=== PATIENT | female | born 1960 | race Caucasian/White ===

== ENCOUNTER 2018-12-08 09:00 | Outpatient (RCR) | payer BC, SELFPAY ==
--- NOTE | 2018-12-08 09:08 | BH.SGPN.GN ---
Behaviors/Verbalizations/Mental Status: []Client alert and oriented, neatly dressed and groomed. Eye contact good. Motor activity appropriate. Speech within normal limits. Affect constricted, mood anxious. Thoughts linear, logical, no signs of hallucinations or delusions. Reviewed client?s symptom tracker. Client marked 2/5 for thoughts of suicide and 0/5 for risk, plan, or intent as of 12/08/18. Therapist to follow up with client after group today. Client Response/Progress/Benefit: []Client entered session alert and oriented, appearing anxious. Client?s first day in PHP. Client declined to share during check in, but she was attentive throughout session. Client receptive to supportive statements from peers who provided hope to client. Client appeared to benefit from connecting with peers and receiving support. Client started PHP today to prevent decompensation of depressive symptoms, improve functioning, and maintain safety.
--- NOTE | 2018-12-08 09:12 | BH.MDN_ITS ---
Multi-Disciplinary Note - Note 60-min Individual Time Started:: 12:25 Date: 12/08/18 Purpose of session/treatment goals addressed:: The purpose of this session was to gather information on client's current stressors, symptoms, history, and treatment goals. Another goal was to build rapport and provide psychoeducation. Eye Contact:: Fair Motor Activity:: Appropriate Appearance:: Neat Speech:: Tangential, Rambling, Rapid Mood:: Anxious, Dysthymic Affect:: Congruent - tearful at times Thoughts:: Racing, No evidence of hallucinations/delusions noted Staff Interventions:: Therapist used active listening and open-ended questions to explore client's current stressors, symptoms, history, and treatment goals. Therapist used strengths perspective to build rapport and help client identify personal resilience factors. Therapist provided psychoeducation on compassion fatigue, depression, and maintenance cycles. Therapist provided emotional support and gave client homework to write down her daily schedule. Client Response:: Client responded well to session, open to meeting with therapist. Client shared what brought her to [facility] which included numerous stressors that have happened within the last few years. Client's stressors included losing her job of 20 plus years, taking care of her mother with Alzheimer's, medical problems in the family, and the loss of her father three years ago. This year is also the 30th year anniversary of her brother's suicide. Client reported her psychiatric nurse practitioner has been trying to get her to come to Behavioral Health for years. 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 Client described herself as scattered and shared she often has difficulty expressing her feelings. Client stated all her life she has had to take care of others and client reported she constantly had to deal with crises. Client shared it's almost like I function best in crisis. Client shared she has been depressed, has no energy, isolates, feels overwhelmed, feels like a burden, and has difficulty finding enjoyment in life. Client receptive to psychoeducation on the depressive maintenance cycle, compassion fatigue, and negative self-talk. Client reported she has never had high self-esteem and often compares herself to others. Client stated her sister and her 's personalities reinforces client's low self-esteem. Client willing to write out her daily schedule for homework. Risks/Concerns:: Client reports having passive suicidal ideations, but she denies any active thoughts, plan, or intent as of 12/08/18. Client reports her family keeps her from acting on her thoughts and shared I would never do that to them. Reports ability to maintain safety. Progress Toward Goals/Plan:: Client?s first day in [facility], no progress to document. Client reports she has been experiencing racing thoughts, constantly feels overwhelmed, and has been isolating. Client also endorses hopelessness, passive suicidal ideations, compassion fatigue, anhedonia, and apathy. shared she has struggled with mental health for most of her adult life and stated, ?It?s always been one crisis after another.? Client identified her treatment goals as learning to like herself, reduce anxiety and depression, improve emotional r egulation ?so my emotions don?t control me,? and improve self-worth. Client meets criteria for [facility] level of care due to the severity of her symptoms, lack of ability to complete ADLs, and passive suicidal ideations. Will continue tx to prevent decompensation and improve daily functioning. Time Stopped:: 13:30
--- NOTE | 2018-12-08 10:25 | BH.COMM ---
Communication Note - Communication with Client Communication Note: Therapist met with client to complete initial PHP paperwork. Therapist introduced self as client's individual therapist and answered client's questions. Client denies any changes since the intake assessment and denies any active suicidal ideations, plan, or intent.
--- NOTE | 2018-12-08 10:27 | BH.PSA_ITS ---
Source of Information - Presenting Problems/Circumstances Problems, Referral Source, Mental Status, Client: Client is a 57-year-old female with a history of depression and anxiety. Client reported her outpatient providers have been trying to get me to come here for a long time. Client presents to [facility] due to decompensation of mental health symptoms for the past several months. Client reports she was let go from her job due to worsening mental health symptoms. Client is the primary caregiver for her mother who has A lzheimer's. Client reports she has been feeling overwhelmed, scattered, and unable to control her emotions. Client endorses erratic sleep, worthlessness, hopelessness, passive thoughts of , low energy, anhedonia, isolative behaviors, and increased appetite. Client also reports ruminations, poor focus, poor memory, racing thoughts, and panic. Client has a history of self-medicating with alcohol. Client's symptoms are interfering with her social, occupational, and familial functioning. Cooperative during the interview. Eye contact good. Motor activity appropriate. Speech within normal limits. Neatly dressed and groomed. Mood depressed, affect flat. Psychiatric Presentation - Psych Issues & Need for Admission Psychiatric Issues:: Major depressive disorder recurrent severe without psychosis F33.2, rule out dysthymia, generalized anxiety disorder Past Psychiatric History - Treatment Hx Treatment History: Client denies any previous psychiatric admits and client had no history of suicide attempts. Client reports she was first depressed in her early 20s and she first took medication for psychiatric reasons around age 28 or 29. Client reports she has been on and off medication but mostly on meds since her late 20s. Past medications include Prozac, Effexor (made her more anxious), Lamictal, and Wellbutrin XL 300 mg p.o. every morning for approximately 2 years. Client has a therapist at [facility]. Rhianna Burnette, and a psych nurse practitioner at [facility] , Deborah Watkins. First hospitalization:: denies Most recent hospitalization:: denies Medication Trials:: Yes - see above ECT Therapy:: No Age of first mental health symptoms: Client reports she was first depressed in her early 20s and she first took medication for psychiatric reasons around age 28 or 29. Client reported she has always struggled with low self-esteem and depression. When client was around 20 years old her brother completed suicide. This is likely a contributor to client's development of symptoms. Describe (age, circumstance, etc) any past hospitalizations: client denies any past hospitalizations. Current providers for mental health treatment (counselor, psychiatrist, cyanide case hardener, etc.): Individual therapist, Rhianna Huizar at [facility]. Deborah Watkins, pharmaceutical botanist, at [facility]. Development & Family of Origin - Childhood Significant Childhood Events: Client's father was disabled - Family Who currently lives in your home?: Client currently lives in [place] with her . Client and her now live alone, but her daughter and granddaughter used to live with client and her for a period of time. Describe family composition:: Client was born and raised in [place] and she describes her childhood as normal. Client reports her parents were hard- working and she knows they cared about her, but there was not much emotion shown by them. Client?s father was disabled and he almost four years ago. Client?s mother has Alzheimer?s and client is one of her primary caregivers. Client reports caregiver fatigue and has considered putting her mother in a halfway. Client has one brother and one sister. Client is the middle child. Client is somewhat close with her sister, but client shared ?it?s her way or the highway.? Client?s brother completed suicide when client was in her 20s. Client had her first daughter at age 17 and had 3 children by age 22. Client has 3 grandchildren now and enjoys them. Client?s oldest daughter and oldest grandchild lived with client and her for a period of time. Client gets along well with her oldest grandchild. Client was at age 18, duration 40 years. Client describes their relationship as ?cohabitating? and reports her is not very supportive. - Family History Family Hx of Psychiatric or AOD Problems: Family psych history on the paternal side she said there is depression and anxiety. She has a brother with depression, anxiety, and borderline personality disorder. She has a son with depression and anxiety. She has a brother who committed suicide. She has no other substance issues in the family. Her mother is 80 years old with Alzheimer's dementia. Ethnicity - Culture Do you identify yourself with any particular cultural, ethnic background, or community?: No - Sexuality Sexual Orientation: Heterosexual Spirituality - Beliefs Is there a particular form of support from this community you can use for your recovery?: No Mental Status - Memory Recent Memory: Fair Remote Memory: Fair - Concentration Concentration: Poor - Eye Contact Eye Contact: Stares - Speech Speech: Rapid, Tangential - Thought Process Thought Process: Ruminations Insight: Fair Judgment: Fair Behavior: Anxious - Orientation Orientation: Time, Person, Place, Situation - Appearance Appearance: Neat/clean - Mood Mood: Anxious, Dysphoric/tearful - Affect Affect: Constricted Suicide Assessment - Suicidal Ideation Have you ever felt like hurting yourself?: Yes Please explain:: history of passive suicidal ideations and wishes of , but denies ever having intent to act on these thoughts. Protective factors include her family and seeing how her brother's suicide impacted her family. Were you using ETOH/drugs at the time?: No Suicidal Intentional Rating Scale (SIRS): Current suicidal thoughts/No plan/Contracts for safety - Client reports having passive suicidal ideations and wishes of . But client declines any plans or intent. Client reported I saw what my brothers suicide did to the family... I would never do that to my family. Physician Notification: If Active suicidal thoughts/Will not contract for safety is checked, contact physician and document in the Physician Notification section below. Violent Behavior/Abuse History - Homicidal Ideation Do you have any homicidal thoughts? If so, explain:: No Is there a known potential victim? If yes, who:: No - Abuse Have you ever been abused?: No - Life Events Are there any other significant life events?: - Client's dad three years ago, client's brother completed suicide when client was in her 20s, and client's mother's health continues to get worse., Hardships - Client recently lost her job, had knee replacement surgery, and is the caregiver for her mother who has alzheimer's., Family illness - Client's has health issues, client's daughter had cancer, and cleint's mother has alzheimer's. - Safety Do you ever feel threatened in your home? If yes, describe:: No Adult Social History - Age 18 to Present Describe your current support system:: Client identified her , her kids, and her sister as her support system. Client does not spend time with friends. Substance Use - Substance Substance Use Type: Alcohol - She first used alcohol around age 14. She never had a problem with drinking but did increase use of alcohol 6 months ago when she was depressed. She was using vodka several shots 4 to 5 days a week for about 4 months. She stopped doing this 3 months ago. Currently her alcohol use is down to 1 beer 2-3 times a week. She has never had withdrawal or blackouts from alcohol. She has no rehab ever for anything., Tobacco - She does smoke 1/2 to 1 pack/day for the past 30 years. She quit each time she was and thinks that she may be could quit again or at least decreased to a few cigarettes a day. - IV Substance Use Do you have a history of IV use?: denies Leisure/Social Activities - Interests What do you enjoy or might be interested in learning about?: Client reports her depressive symptoms keep client from engaging in activities she used to enjoy. Client used to like exercising, reading, and cooking. Education & Occupational Histo - Education What is your level of education?: High School Do you have any learning disabilities?: No - Occupation List any current or past employment:: She recently lost her job in September 2018. 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 Service - Service Have you ever been in the ?: No Legal History - Records Have you had any past legal charges?: No Do you have any current legal charges?: No Have you ever been incarcerated? If yes, describe:: No - Court Orders Have you had any past court orders for psychiatric treatment?: No Do you have a present court order for psychiatric treatment?: No Problem Checklist - Current Problem Areas Problem List: Nutritional/Eating pattern changes - 40 pount weight gain in the past 6 months and increased appetite., Depressed mood/sad - She endorses anhedonia with no enjoyment of the usual things she enjoys. She describes a lack of motivation to get anything done around the house. She has low energy and no motivation. Client reports a weight gain of 40 pounds in the past 6 months and increased appetite. Client endorses feelings of worthlessness, hopelessness, and sadness. Client reports history of low self-esteem and negative self-talk that reinforces depression., Bereavement - brother completed suicide when client was in her 20s, lost her father almost four years ago, and client's mother's health continues to decline., Anxiety - Client feels nervous all the time and has occasional panic attacks but they are not full-blown. She does have racing thoughts at times which makes it difficult to get to sleep., Inattention - reports difficulty concentrating, completing tasks, and finishing thoughts, Substance use - increased use of alcohol 6 months ago when she was depressed. She was using vodka several shots 4 to 5 days a week for about 4 months. She stopped doing this 3 months ago. Currently her alcohol use is down to 1 beer 2-3 times a week., Sleep problems - difficutly falling asleep and reports sleeping too much, Pertinent health issues - She has a history of a hysterectomy 8 years ago, knee replacement surgery, rotator cuff surgeries, one small bowel surgery., Additional psychosocial stressors - primary caregiver for her mother, marital issues, recently lost of her job, and currently isolating from supports. Discharge Planning Needs - Anticipated Follow-Up Mental Health Center (Name/Phone Number):: [facility] sees Rhianna Huizar Private Therapist/Psychiatrist:: [facility] sees Deborah Watkins Family and Caregiver Contacts:: Moreno Berry- Release of Information Signed:: No Automotive Detailer's Assessment - Client's Needs What are the client's feelings about the program?: Hopeful that the program will be helpful and assist client in reducing her symptoms. What are the client's goals?: Client identified her treatment goals as learning to like herself, reduce anxiety and depression, improve emotional regulation ?so my emotions don?t control me,? and improve self-worth. What are the client's strengths?: Client presents as a kind, resilient, and motivated woman who wants to improve her mental health. 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 Client reports being close with her family. Client is established outpatient counseling and psychiatry. Client is currently not working which is helping client focus more on her mental health. Diagnoses - Diagnoses Diagnosis #1:: Major depressive disorder recurrent severe without psychosis F33.2 Diagnosis #2:: Generalized anxiety disorder Interpretive Summary - Interpretive Summary Interpretive Summary: Client is a 57-year-old female with a history of depression and anxiety. Client reported her outpatient providers have been trying to get me to come here for a long time. Client presents to [facility] due to decompensation of mental health symptoms for the past several months. Client has no previous psychiatric admissions and denies any history of suicide attempts. Client reports she was let go from her job due to worsening mental health symptoms. 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 Client reports she has been feeling overwhelmed, scattered, and unable to control her emotions. Client endorses erratic sleep, worthlessness, hopelessness, passive thoughts of , low energy, anhedonia, isolative behaviors, and increased appetite. Client also reports ruminations, poor focus, poor memory, racing thoughts, and panic. Client has a history of self-medicating with alcohol and she continues to do this, but of decreased intensity. Client denes history of abuse. Family history of depression, anxiety, and her brother completed suicide. Client's symptoms are interfering with her social, occupational, and familial functioning. Treatment Plan Recommendations - Recommendations Guidelines: Special needs identified to be included in the development of an individualized treatment plan regarding past psychiatric history and treatment, developmental events, family relationships/events/culture, past and/or current educational, occupational, social, and residential experience, and legal status. Recommendations:: Risks, options, possible complications, benefits and side effects of medications were discussed between psychiatrist and patient and she understands and accepts these. The patient will do the PHP program as the structure, education and support are necessary to prevent exacerbation of her symptoms and need for hospitalization. Provided resources for caregiver support groups.
--- NOTE | 2018-12-08 10:27 | BH.MTP ---
[facility] Treatment Plan - Patient Information Program Physician:: Lois Henry Primary Therapist:: Antoinette Cabrera - Psychiatric Diagnoses Psychiatric Diagnoses:: Major depressive disorder recurrent severe without psychosis F33.2, rule out dysthymia, generalized anxiety disorder Diagnosis Code(s):: F 33.2 - Estimated LOS Estimated LOS (in weeks):: 1 Problem/Goal #1 - Problem/Goal #1 Stated Goal:: Client will decrease depressive symptoms, isolation, and passive suicidal ideations due to Major Depressive Disorder. 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 Being a caregiver is time consuming and exacerbates client's mental health symptoms. Client has used drinking and other unhealthy coping skills to manage the stress from caregiving. Additionally, client reports not having many supports, isolative behaviors, and low self-esteem. Client shared her relationship with her is not the greatest. Client stated most of her adult life has been one crisis after another. For this reason, client reports belief she functions best in crisis which makes it difficult to maintain stability. Functional Impact: Client is a 57-year-old female with a history of depression and anxiety. Client reported her outpatient providers have been trying to get me to come here for a long time. Client presents to [facility] due to decompensation of mental health symptoms for the past several months. Client reports she was let go from her job due to worsening mental health symptoms. 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 Client reports she has been feeling overwhelmed, scattered, and unable to control her emotions. Client endorses erratic sleep, worthlessness, hopelessness, passive thoughts of , low energy, anhedonia, isolative behaviors, and increased appetite. Client also reports ruminations, poor focus, poor memory, racing thoughts, and panic. Client has a history of self-medicating with alcohol. Client's symptoms are interfering with her social, occupational, and familial functioning. Goal Relevant Strengths/Supports: Client presents as a kind, resilient, and motivated woman who wants to improve her mental health. 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 Client reports being close with her family. Client is established outpatient counseling and psychiatry. Client is currently not working which is helping client focus more on her mental health. - Objectives Objective #1 Stated Objective: Client will increase social activity to at least one additional activity per week to increase social engagement and break depressive maintenance cycles. Interventions: Therapist will help client explore social connection opportunities, and process ways to get the most out of the experience. Therapist will use behavioral activation and SMART goal setting. Therapist will provide education on maintenance cycles for depression and help client learn how to break unhealthy maintenance cycles. Discharge Criteria: Client will have achieved this objective when can identify attending at least one social activity of interest weekly and report reduced isolation. Target Date: 12/15/18 Review Date: 12/15/18 Status: open Objective #2 Stated Objective: Client will identify and replace 2-3 negative thinking patterns that mediate feelings of guilt, sadness, and negative core beliefs to reduce depressive symptoms. Interventions: Therapist will assist client in developing an awareness of the cognitive messages that reinforce depressive, guilty thinking. Therapist will also assist client in challenging, reframing, and replacing negative thinking patterns. Therapist will provide psychoeducation on depression and help client increase awareness of warning signs and triggers. Discharge Criteria: Client will have achieved this goal when can identify at least 2 negative thinking patterns, replace negative thinking with more positive, affirmative messages. Target Date: 12/15/18 Review Date: 12/15/18 Status: open Problem/Goal #2 - Problem/Goal #2 Stated Goal:: Client will decrease ruminating thoughts which cause anxiety. 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 Being a caregiver is time consuming and exacerbates client's mental health symptoms. Client has used drinking and other unhealthy coping skills to manage the stress from caregiving. Additionally, client reports not having many supports, isolative behaviors, and low self-esteem. Client shared her relationship with her is not the greatest. Client stated most of her adult life has been one crisis after another. For this reason, client reports belief she functions best in crisis which makes it difficult to maintain stability. Functional Impact: Client is a 57-year-old female with a history of depression and anxiety. Client reported her outpatient providers have been trying to get me to come here for a long time. Client presents to [facility] due to decompensation of mental health symptoms for the past several months. Client reports she was let go from her job due to worsening mental health symptoms. 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 Client reports she has been feeling overwhelmed, scattered, and unable to control her emotions. Client endorses erratic sleep, worthlessness, hopelessness, passive thoughts of , low energy, anhedonia, isolative behaviors, and increased appetite. Client also reports ruminations, poor focus, poor memory, racing thoughts, and panic. Client has a history of self-medicating with alcohol. Client's symptoms are interfering with her social, occupational, and familial functioning. Goal Relevant Strengths/Supports: Client presents as a kind, resilient, and motivated woman who wants to improve her mental health. 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 Client reports being close with her family. Client is established outpatient counseling and psychiatry. Client is currently not working which is helping client focus more on her mental health. - Objectives Objective #1 Stated Objective: Client will identify 2-3 anxiety triggers and 2 coping skills to use when feeling anxious. Interventions: Through group and individual sessions client will increase awareness of anxiety triggers. Therapist will teach client various coping strategies to promote emotional regulation and reduction of anxiety. Therapist will discuss the importance of self-care to avoid burnout and reduce stress while helping client establish clearer boundaries and communication with supports. Discharge Criteria: Client will have accomplished this goal when can report at least 2 triggers for anxiety and state using 2 coping strategies to manage symptoms. Target Date: 12/15/18 Review Date: 12/15/18 Status: open
--- NOTE | 2018-12-08 11:10 | BH.SGPN.GN ---
Behaviors/Verbalizations/Mental Status: [Client alert and oriented, neatly dressed and groomed. Eye contact good. Motor activity appropriate. Speech within normal limits, quiet. Affect congruent, mood dysthymic, anxious. Thoughts linear, logical, no signs of hallucinations or delusions. ] Client Response/Progress/Benefit: [Client responded well to session, attentive and engaged during small group session. A times pt appearing to struggle with attentiveness due to racing thoughts and difficulties in maintaining concentration. Able to re-engage as group discussed the mental health benefits of recognizing strengths which included; improved self-esteem, better relationships, and being able to better problem solve, as well as willingness to ask for help. Group identified the barriers that have prevented them from acknowledging their strengths and successes. These barriers included; negative thoughts, feeling like a burden, negative outlook, lack of awareness of strengths. Group identified strategies to overcome barriers that prevent them from seeing strengths. These strategies included; keeping track of progress, practicing using affirmations, and reaching out to supports to challenge perspective when needed. Client initially struggling to identify strengths, though able to identify personal strengths she possesses with assistance, which included; caring for her family, resilience, kindness, and determination. Appeared to benefit from recognizing personal strengths and identifying strategies to overcome barriers. Will continue PHP tx to improve mood stability, further increase healthy coping skills for managing depression and anxiety, maintain safety, and prevent decompensation. ] Narrative Note: []
--- NOTE | 2018-12-09 08:27 | PCM.BH.PSYEV ---
Psychiatric Evaluation - Initial Evaluation Initial Evaluation: Chief Complaint: [] History of Present Illness: [] Current Psychiatric Medications: [] Past Psychiatric History: [] Substance Use History: [] Allergies: [] Past Medical History: [] Family Psychiatric History: [] Personal/Social History: [] Legal History: [] Review of Systems: [] Vital Signs: [] Mental Status Examination: [] Summary: [] Diagnoses: [] [place] I: [] [place] II: [] [place] III: [] Plan: []
--- NOTE | 2018-12-09 09:02 | BH.SGPN.GN ---
Behaviors/Verbalizations/Mental Status: [Client alert and oriented, casually dressed and appropriately groomed. Eye contact fair to good. Motor activity appropriate. Speech within normal limits. Affect congruent to topic being discussed, mood depressed, anxious. Thoughts appearing to experience some thought blocking and indicated feeling scattered, linear and logical, no signs of hallucinations or delusions. Reviewed daily check in sheet, pt denies any current SI, plan, or intent.] Client Response/Progress/Benefit: [Pt mostly engaged in group discussion, listening and providing some input to discussion. At times appearing distracted by own thoughts. Emotion for today is scattered. Pt indicated that current emotion is due to struggling to focus as a result of racing thoughts. Indicated not wanting to share due to feeling she cannot think clearly at the moment. Pt encouraged to identify one small step she can take to reduce anxiety and improve mindfulness, however pt reported ?I don?t know what I need?. Expressed willingness to meet with individual therapist to further discuss and identify means for healthy coping. Pt receptive of support from the group. Progress limited give pt report of difficulties in identifying and applying healthy skills. Pt recommended continued PHP tx to promote use of coping skills, maintain stability, and prevent decompensation. ] Narrative Note: []
--- NOTE | 2018-12-09 12:13 | PCM.BH.PSYEV ---
Psychiatric Evaluation - Initial Evaluation Initial Evaluation: Chief Complaint: [] Depression History of Present Illness: Patient is a 57-year-old female with a history of major depressive disorder and generalized anxiety disorder who was referred to the IOP program at [facility] by her neuropsychology division chief and her therapist. She has been for 40 years. She recently lost her job in September 2018. 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 She has been primary caregiver for her 80-year-old mother with Alzheimer's dementia for the past 3-1/2 years. She has been caregiving since her father 3 years ago. This is been very stressful for her and has left her at times feeling overwhelmed and exhausted. She describes a history of being overwhelmed by her emotions lately. She has a history of a brother who completed suicide at age 23 when the patient was 27 years old. She states that this has been hard for her to deal with as this year is the 30th anniversary of his suicide. She describes depressed mood that is been very sad but has improved a little since she made the decision to do the IOP. She endorses anhedonia with no enjoyment of the usual things she enjoys. She describes a lack of motivation to get anything done around the house. She has low energy at times. She has had a weight gain of 40 pounds in the past 6 months and increased appetite. Her sleep has been decreased at times but has improved when she uses her trazodone. Her concentration has been decreased during this depression. She endorses feelings of worthlessness, hopelessness. She feels nervous all the time and has occasional panic attacks but they are not full-blown. She does have racing thoughts at times which makes it difficult to get to sleep. She has been isolating herself in the past few months. For primary support she says she has no one to talk to except her counselor. She says she cohabitates with her these days and he is into 4 wheelers in his activities and she is doing the caretaking of her mother and feeling down and they do not have much meaningful interaction. She describes a history of alcohol use which increased several months ago but she then decreased it recently in the past 3 weeks. 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 She denies any suicidal ideation. She would never do that to her family. Denies any plan of suicide. Denies any homicidal ideation ever.denies any hallucinations or delusions. Denies any history of suzanne. Current Psychiatric Medications: [Trazodone 50 mg p.o. nightly for 2 years, Paxil 20 mg daily for 2 or 3 years. No recent change in dose. BuSpar 10 mg p.o. twice a day for 10 years and Ativan 0.5 mg as needed. She was not on ativan for 2 years but then went back on it recently and uses it maybe 3 times a week.] Past Psychiatric History: No previous psychiatric admits. No suicide attempts ever. [SHe was first depressed in her early 20s. The first time she took medication for psychiatric reasons was around age 28 or 29 years of age. She has had a history of depression off and on since her 20s. She has been on and off medication but mostly on meds since her late 20s.] Past medications include Prozac, Effexor (made her more anxious), Lamictal, and Wellbutrin XL 300 mg p.o. every morning for 2 years or so. This helped her but she stopped it 2 months ago secondary to cost. She has a therapist named Rhianna Burnette , psych nurse practitioner who she sees soon. She has had counseling off and on over the years and sometimes it is helpful. Substance Use History: [She first used alcohol around age 14. She never had a problem with drinking but did increase use of alcohol 6 months ago when she was depressed. She was using vodka several shots 4 to 5 days a week for about 4 months. She stopped doing this 3 months ago. Currently her alcohol use is down to 1 beer 2-3 times a week. She has never had withdrawal or blackouts from alcohol. She has no rehab ever for anything. She denies any marijuana use denies any other drug use. She does smoke 1/2 to 1 pack/day for the past 30 years. She quit each time she was and thinks that she may be could quit again or at least decreased to a few cigarettes a day.] Allergies: [No known allergies] Past Medical History: She has a history of a hysterectomy 8 years ago, knee replacement surgery, rotator cuff surgeries, one small bowel surgery. She is a 3 para 3 Ab0 and had surgical menopause at the time of her hysterectomy. Past medical history is otherwise negative. Family Psychiatric History: [Family psych history on the paternal side she said there is depression and anxiety. She has a brother with depression, anxiety, and borderline personality disorder. She has a son with depression and anxiety. She has a brother who committed suicide. She has no other substance issues in the family. Her mother is 80 years old with Alzheimer's dementia. Her father at age 83 years after her heart and kidney transplant.] Personal/Social History: Patient was born and raised in [place]. She describes her childhood as normal. Her parents were hard-working and she knows they cared about her but there was not much emotion shown by them. No abuse: verbal physical or sexual. She has 2 brothers and 1 sister. She was close to her sister's at times. She is the middle child. School was okay for her . She graduated high school but no college. She had her first daughter at age 17 and had 3 children by age 22. She has 3 grandchildren now and enjoys them. She was at age 18, duration 40 years. is not real supportive of her in terms of she does not rely on him for support and they kind of each have their own life now. He is very much into riding 4 wheelers and very active and She has been pretty busy and depressed lately. [] Legal History: [No arrests. No longterm. 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 She is casually dressed and groomed with good hygiene. She is cooperative throughout the interview. She has no psychomotor agitation or retardation. Her speech is normal rate and rhythm with no pressure. Her mood is depressed. Affect is constricted to flat. Thought processes organized and goal-directed thought content: No evidence of hallucinations or delusions. No evidence of suicidal or homicidal ideation. Patient has had passive thoughts that she would not care if she got sick and . Reality testing intact. Intelligence average. Judgment intact. Impulsivity low. Insight good. Labs: Patient has had her thyroid tested recently and it is normal. Should her vitamin D has been low in the past but she takes vitamin D during the winter months. [] Diagnoses: [] [place] I: [Major depressive disorder recurrent severe without psychosis, rule out dysthymia, generalized anxiety disorder] [place] II: [] [place] III: [] Plan: Since the patient is so depressed and her medications have not been changed for a while she agrees to increase her Paxil to 30 mg p.o. daily. She has it at home and we will not give her a prescription until we see how she tolerates this. She is also instructed that she may take her BuSpar 10 mg up to 3 times a day instead of only twice a day. She will continue to try to not use Ativan if at all possible. She agrees to try healthy eating like a Mediterranean diet and walking to help her depression. I will see her back in 2 to 3 weeks. At that time we may consider adding Zyban or Wellbutrin SR to help with depression and motivation and to enable her to quit smoking. Risks, options, possible complications,benefits and side effects of medications were discussed with the patient and she understands and accepts these. The patient will do the IOP program as the structure,education and support are necessary to prevent exacerbation of her symptoms and need for hospitalization. []
--- NOTE | 2018-12-09 12:44 | BH.DR.ITP ---
Initial Treatment Plan - Patient Information Visit Information: ADMISSION DATE: EXPECTED LOS: 4-6 weeks - Problems/Symptoms Problem #1:: Depression Symptom:: Sadness, rumination Problem #2:: Anxiety Symptom:: worries, panicky feelings
--- NOTE | 2018-12-09 14:24 | BH.MDN ---
Multi-Disciplinary Note - Note 60-min Individual Time Started:: 12:20 Date: 12/09/18 Purpose of session/treatment goals addressed:: The purpose of this session was to address current symptoms, stressors, and negative thoughts. Another goal was to set small goals and practice cognitive restructuring. Other topics included homework review. Eye Contact:: Fair Motor Activity:: Appropriate Appearance:: Neat Speech:: Tangential, Rambling Mood:: Anxious, Dysthymic Affect:: Congruent Thoughts:: Other - reporting scattered thoughts today, No evidence of hallucinations/delusions noted Staff Interventions:: Therapist used active listening and open-ended questions to explore client's current stressors, symptoms, and negative thoughts. Therapist provided emotional support and assisted client in processing emotions and interpersonal relationship issues. Therapist provided psychoeducation on cognitive distortions and used cognitive restructuring to help client challenge negative thoughts in session. Therapist gave client homework to be aware of her distorted thoughts and engage in a behavioral activation activity for 20 minutes today. Client Response:: Client responded well to session, open to meeting with therapist. Client continues to report scattered thoughts today, but shared she was less anxious today at [facility]. Client reported her mental health and thinking is often impacted by relationships in her life including her sister and client's . Client shared her and sister often invalidate her and help but don't help at the same time. Client and therapist processed client's conflicting emotions and client willing to think about a family session. Completed homework and recognized that her daily schedule is strictly made up of tasks client has to accomplish which all emotionally and physically drain client. Client stated she has always had to care for others and has never explored hobbies, interests, and does not have close friendships. Client able to see lack of pleasurable activities and limited support reinforces negative thinking, isolation, and depression. Client willing to learn about cognitive distortions and reported connecting with how distortions impact mental health. Client reported she often disqualifies her positives, personalizes, and mind-reads. Client shared she often has negative thoughts of self and was willing to practice being aware of distortions for homework. Client also set a goal to power wash her house today for 20 minutes as a way to get her out of the house and promote accomplishment. Risks/Concerns:: Client denies any active suicidal ideations, plan, or intent as of 12/09/18. Client reports her family is her reason for living and shared I'd never do anything to hurt them. Future oriented throughout session. Progress Toward Goals/Plan:: Client?s second day in [facility], completed homework and spoke with her son about PHP last night which is a supportive factor in treatment. Client continues to report racing thoughts, constantly feeling overwhelmed, and avoidance behaviors. Client also continues to endorse hopelessness, passive wishes of , compassion fatigue, anhedonia, and apathy. Client shared she wants to find meaning in her life and figure out ?who I really am.? Client willing to complete homework and set a goal to power wash for 20 minutes today. Client meets criteria for [facility] level of care due to the severity of her symptoms, lack of ability to complete ADLs, and passive wishes of . Will continue tx to prevent decompensation, promote use of healthy coping skills, and improve daily functioning. Time Stopped:: 13:25
--- NOTE | 2018-12-10 10:16 | BH.COMM ---
Communication Note - Communication with Client Communication Note: Client called into Behavioral Health this morning to cancel her scheduled group and individual sessions. Client reported she feels overwhelmed today and reports belief she needs a decompress day. Client shared belief that she would not be able to learn new information in group today as she already feels overwhelmed. Therapist offered to have client come in just for an individual session, but client declined. Client reported I honestly feel like I'll be fine, and I'll be there tomorrow. Therapist encouraged client to reach out to supports and utilize coping skills to prevent isolation and worsening depressive symptoms. Client shared she was willing to reach out to her grandchildren today to help improve her mood. Client denies any suicidal thoughts today and was future oriented throughout phone conversation.
--- NOTE | 2018-12-11 09:06 | BH.SGPN.GN ---
Behaviors/Verbalizations/Mental Status: []Client alert and oriented, neatly dressed and groomed. Eye contact good. Motor activity appropriate. Speech within normal limits. Affect congruent, mood dysthymic. Thoughts linear, logical, no signs of hallucinations or delusions. Reviewed client?s symptom tracker. Client had 1/5 for thoughts of suicide and 0/5 plan and intent as of 12/11/18. Client's scores are within client's baseline. Protective factors include family. Client Response/Progress/Benefit: []Client responded well to session, attentive and participating during session. Client reports feeling ?good? today. Client shared she feels more motivated than usual today, which client contributed to drinking coffee. Client unable to identify any internal coping skills she has used that may be contributing to her improved mood. After further exploration, client recognized that she was able to get some chores done around the house yesterday which made client feel a sense of accomplishment. Client?s mental health win today is that she made it to group today after having a ?shut down day? yesterday. Client reported she was feeling overwhelmed yesterday which led to isolation. Client able to recognize that isolating when she feels overwhelmed further reinforces her anxiety and depression. Client appeared to benefit from socializing and utilizing coping skills today, rather than isolating at home. Continues to struggle with consistent application of coping skills per client?s report. Will continue tx to prevent decompensation and improve mood stability.
--- NOTE | 2018-12-11 10:15 | BH.SGPN.GN ---
Behaviors/Verbalizations/Mental Status: []Client alert and oriented, neatly dressed and groomed. Eye contact good. Motor activity appropriate. Speech within normal limits. Affect constricted, mood anxious. Thoughts linear, logical, no signs of hallucinations or delusions. Client Response/Progress/Benefit: []Client responded well to session, actively contributing to discussion and attentive throughout. Client indicated connecting with the topic of cognitive distortions and stated, ?my thoughts can put me in high anxiety in a minute.? Client shared negative thoughts can cause a person to feel so overwhelmed they freeze. Client reported it is possible to ?retrain your brain? but it requires hard work. Client did well to work with the group on defining the various types of cognitive distortions and their impact on mental health. Client reported connecting with distortions of black and white thinking, predicting the future, and disqualifying the positives. Appeared to benefit from increasing awareness of cognitive distortions and how they can impact emotions and behaviors. Client continues show strides in increasing self-awareness and learning coping skills. Will continue PHP to prevent decompensation and improve daily functioning.
--- NOTE | 2018-12-11 15:02 | BH.MDN_ITS ---
Multi-Disciplinary Note - Note 45-min Individual Time Started:: 12:40 Date: 12/11/18 Purpose of session/treatment goals addressed:: The purpose of this session was to address current symptoms, stressors, and triggers. Another goal was to practice cognitive restructuring techniques. Other topics included awareness and homework review. Eye Contact:: Good Motor Activity:: Appropriate Appearance:: Neat Speech:: Appropriate Mood:: Anxious Affect:: Congruent Thoughts:: Linear, Logical, No evidence of hallucinations/delusions noted Staff Interventions:: Therapist used active listening and open-ended questions to explore client's current stressors, symptoms, and triggers. Therapist reviewed homework. Therapist helped client process upcoming stressors and and reviewed healthy coping skills. Therapist used strengths perspective to empower client on application of skills. Therapist reviewed distortions with client and taught client various thought challenging techniques. Therapist gave client homework to challenge one negative thought a day. Client Response:: Client responded well to session, open to meeting with therapist. Client reported today's group on cognitive distortions really hit me. Client reported since learning about distortions it has opened her eyes to how negative she talks to herself. Client shared her son gave her advice on challenging negative thoughts which was would you say this to your kids. Client reported yesterday she did not come to group because she felt so overwhelmed and had racing thoughts. Client shared she slept until the afternoon, but then client was able to be productive and clean the deck outside. Client reported she usually would not be able to make herself be productive after a shutdown day, so client was pleased with her accomplishments. Client and therapist discussed self-care and how her shutdown day may have been self- care as client was able to calm herself down and then be productive. Client willing to learn more about challenging negative thoughts and was receptive to the technique T.H.I.N.K. Client open to challenging one negative thought a day for homework. Client reported she feels anxious about giving her mother a new medication today. Therapist and client reviewed coping skills client can use to help client manage emotions when with her mother. Client stated it is her wedding anniversary tomorrow and she and her plan to spend the day with their children. Risks/Concerns:: Client denies any active suicidal ideations, plan, or intent as of 7/12/19. Client future oriented throughout session, plans to spend time with her family for client's anniversary with her . Progress Toward Goals/Plan:: Client is demonstrating progress towards treatment goals as shown by her use of opposite action yesterday and report of improved self-awareness. Client completed homework from last session. Client continues to report racing thoughts, constantly feeling overwhelmed, and avoidance behaviors. Client also continues to endorse negative thinking, low self-esteem, crying spells, anhedonia, and difficulty concentrating. Client meets criteria for [facility] level of care due to the severity of her symptoms, lack of ability to complete ADLs and lack of functioning at baseline. Will continue tx to prevent decompensation, promote use of healthy coping skills, and improve daily functioning. Time Stopped:: 13:30
--- NOTE | 2018-12-14 07:08 | BH.MDN ---
Multi-Disciplinary Note - Note 45-min Individual Time Started:: 12:20 Date: 12/14/18 Purpose of session/treatment goals addressed:: The purpose of this session was to address current symptoms, stressors, and triggers. Another goal was to practice stress management strategies. Other topics included effective communication and thought challenging. Eye Contact:: Fair Motor Activity:: Appropriate Appearance:: Neat Speech:: Rambling Mood:: Anxious Affect:: Congruent Thoughts:: Circular, No evidence of hallucinations/delusions noted Staff Interventions:: Therapist used active listening and open-ended questions to explore client's current stressors, symptoms, and triggers. Therapist reviewed homework and encouraged client to complete it for tonight. Therapist helped client process difficult situations that occurred over the weekend and utilized self-compassion techniques. Therapist reviewed stress management and effective communication strategies. Therapist gave client resources for a caregiver support group in her area. Therapist gave client homework to challenge practice mindfulness before thought challenging today. Client Response:: Client responded well to session, open to meeting with therapist. Client shared several stressors that occurred over the weekend with her mother. 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 Client faces numerous challenges associated with caring for someone with Alzheimer?s. Client reported after one of the incidents on Friday client drank. Client reported belief her drinking was not out of desperation, I just wanted to move past that day. Client shared she only had one drink and denied drinking over the weekend. Client and therapist discussed healthy coping skills to use instead of drinking. Client reports she is starting to see the benefits of putting her mother in a penitentiary. Client stated she used to feel guilty for thinking this way, but now client states it's best for all our sanity. Client shared she needs to confront her sister about caregiver issues today and client is feeling anxious. Per client's report, her sister is manipulative and often invalidates client. Client receptive to discussing stress management and communication strategies. Client willing to write out talking points, text her sister expectations ahead of time, and try to avoid passive statements. Client and therapist also reviewed thought challenging and client expressed thought challenging has been hard for her. Therapist normalized this and provided psychoeducation. Client recognized that when her emotional state is heighted it is harder to challenge thoughts. Client was willing to practice mindfulness before thought challenging today. Risks/Concerns:: Client denies any suicidal ideations, plan, or intent as of 12/14/18. Progress Toward Goals/Plan:: Client is demonstrating progress towards treatment goals as shown by her report of ?not letting Friday ruin my day Friday? and socialization over the weekend. Client reported numerous stressors with her mother this weekend. Client receptive to the caregiver support group and shared they have been helpful in the past. Client continues to report racing thoughts, constantly feeling overwhelmed, low self-esteem, crying spells, anhedonia, difficulty concentrating, and negative thinking. Client would like to work on improving her communication and boundary setting with her family. Will continue PHP tx to prevent decompensation, promote use of healthy coping skills, and improve daily functioning. Time Stopped:: 13:05
--- NOTE | 2018-12-14 09:03 | BH.SGPN.GN ---
Behaviors/Verbalizations/Mental Status: []Client alert and oriented, neatly dressed and groomed. Eye contact good. Motor activity appropriate. Speech within normal limits. Affect constricted, mood anxious, dysthymic Thoughts linear, logical, no signs of hallucinations or delusions. Reviewed client?s symptom tracker, no risk for suicidal ideation, plan, or intent as of 12/14/18. Client Response/Progress/Benefit: []Client responded well to session, connecting with peers and attentive throughout. Client reports having a mix of emotions this morning. Client shared ?I thought I was calm, but I was sweating and anxious and now I feel numb.? Client reported her stressor is managing her mother?s health. Client stated there was a few instances over the weekend that were emotionally exhausting to client. Client reported she plans to have a talk with her sister today and client plans to advocate for herself. The group provided emotional support and validation. Client able to identify mental health positives despite stressors. Client?s positives included having a good anniversary celebration, challenging expectations, and not letting her emotions determine her day on Friday. Client appeared to benefit from receiving emotional support and processing her stressors. Progress noted in client?s increased self-awareness. Will continue PHP to prevent decompensation and reduce symptoms.
--- NOTE | 2018-12-14 11:20 | BH.SGPN.GN ---
Behaviors/Verbalizations/Mental Status: [Client alert and oriented, casually dressed and groomed. Eye contact good. Motor activity appropriate. Speech within normal limits. Affect congruent [place] at times laughing, mood anxious. Thoughts linear, logical, no signs of hallucinations or delusions. ] Client Response/Progress/Benefit: [Client responded well to session, contributing to discussion. Engaged in ongoing psychoeducation on the different communication styles. Client able to gain insight into her communication style and client reported ?It depends on who I?m communicating with? but identified falling into passive and passive aggressive communication styles. Client shared she tends to hold in emotions and then they build up to the point of her reaching panic or completely shutting down. Client reported these communication styles have negatively impacted her mental health and relationships. Client shared she has low self-esteem, resentments, and increased anxiety as a result of current communication styles. Participated in group activity which suggests progress. Able to use the activity to reflect on ways to improve communication. Attentive during psychoeducation on effective communications strategies and reported she wants to work on being more assertive and able to say no in her approach to communication. Appeared to benefit from increasing self-awareness and practicing in the moment coping skills. Will continue PHP to prevent decompensation and improve mood stability.] Narrative Note: []
--- NOTE | 2018-12-15 09:00 | BH.SGPN.GN ---
Behaviors/Verbalizations/Mental Status: [] Eye contact is good. Motor activity is appropriate. Appearance is neat. Speech is Appropriate. Mood is anxious. Affect is congruent. Thoughts are linear and logical. No evidence of psychosis. Reviewed daily check in sheet and no reports of suicidal ideations or intent. Client Response/Progress/Benefit: [] Pt spoke when prompted. Emotion for today is anxious. Reports that she ruminated extensively about an issues yesterday regarding her family. Reported what if thinking and trying to prepare for the worst. Discussed how this impacted her. In the end she reports that everything turned out well and she spend all that time worrying. Discussed what she learned from that situation. Notes increased anxiety last night which resulted in pacing and she is wondering about the cause. Believes it may be related to medication increase. Agreed to talk about this further with her therapist and possibly consult with psychiatrist. Some progress noted per pt report. Benefited from group support, feedback, and encouragement. Will continue in IOP to prevent decompensation, increase coping skills, decrease anxiety, and improve functioning. Narrative Note: []
--- NOTE | 2018-12-15 11:17 | BH.SGPN.GN ---
Behaviors/Verbalizations/Mental Status: []Client alert and oriented, neatly dressed and groomed. Eye contact intense-staring. Motor activity appropriate. Speech within normal limits. Affect constricted, mood anxious. Thoughts linear, logical, no signs of hallucinations or delusions. Client Response/Progress/Benefit: []Client responded well to session, listening attentively and taking notes. Quiet, but participating when promoted. Client appeared to connect with the activity from second group and helped the group identify benefits of having a strong foundation of internal and external coping skills. Client helped the group discuss the different categories of coping skills and provided examples. Client created a coping skills ?menu? for the five categories of coping skills. Client selected cooking, exercising, mindful eating, positive affirmations, and telling herself thoughts are thoughts not facts as her coping skills to try. Client appeared to benefit from increasing her repertoire of healthy coping skills. Client to discharge from [facility] today and begin IOP tomorrow. Client has made progress in increasing self-awareness, reducing passive suicidal ideations, and generalizing coping skills. Client will continue IOP to reduce depression, isolation, and anxiety.
--- NOTE | 2018-12-15 14:13 | BH.MDN ---
Multi-Disciplinary Note - Note 45-min Individual Time Started:: 12:24 Date: 12/15/18 Purpose of session/treatment goals addressed:: The purpose of this session was to address current symptoms, stressors, and triggers. Another goal was to set a behavioral activation goal and identify strategies to promote follow through. Other topics: included medication and coping skills. Eye Contact:: Good Motor Activity:: Appropriate Appearance:: Neat Speech:: Appropriate Mood:: Anxious Affect:: Congruent Thoughts:: Linear, Logical, No evidence of hallucinations/delusions noted Staff Interventions:: Therapist used active listening and open-ended questions to explore client's current stressors, symptoms, and triggers. Therapist processed barriers that kept client from thought challenging and helped client problem-solve solutions. Therapist used pleasure predicting to help client set a behavioral activation goal and promote follow through. Therapist gave client homework to walk tonight and gave client a coping skill tracker. Client Response:: Client responded well to session, open to meeting with therapist. Client reported the conversation went well with her sister and that they were on the same page about their mother?s care. Client shared I didn't need to get so worked up it went fine. Client reported she was able to verbalize her needs and opinions with her sister without feeling invalidated. Client reported she was unable to work on her thought challenging homework yesterday because I got really bad anxiety out of nowhere. Client stated she felt tightness in her chest, shortness of breath, restlessness, and on edge. Client reported she had to take some of her Ativan, but client did not only rely on the medication. Client reported she went outside and paced and breathed. Client receptive to therapist discussing medication issues with the treatment team and psychiatrist. Client shared she wants to get back to being more active. Client acknowledged that when she was exercising in the past it improved her mood and regulation skills. Client wants to walk tonight and set a goal to walk 2 or 3 laps by her house. Client shared self-discipline is challenging for her. Receptive to completing a pleasure prediction activity. Client predicted 10/10 for pleasure and shared she will feel extremely proud of herself after walking. Client wrote down her predicted thoughts and emotions as well. Client was encouraged to write down her actual experience after completing her goal. Risks/Concerns:: Client denies any suicidal ideations, plan, or intent as of 12/16/18. Progress Toward Goals/Plan:: Client is demonstrating progress towards treatment goals as shown by her report of increased self-awareness, improved communication, and generalization of coping skills. Client continues to have numerous stressors in her life, but she reports improving ability to manage stress without turning to drinking or isolating. Client also shares being more motivated to be more physically active again. Client reports having high anxiety ?out of nowhere? yesterday, which client reports belief may be due to medication. Therapist will discuss with treatment team. Client continues to report anxiety, racing thoughts, and a depressed mood of reduced intensity. Will discharge from [facility] and step down to IOP level of care to promote gains and further improve daily functioning. Time Stopped:: 13:10
--- NOTE | 2018-12-15 15:21 | BH.DS ---
Discharge Summary - Demographics Date of Admission:: 12/08/18 Discharge Date: 12/15/18 Presenting Problems at Admission:: Client is a 57-year-old female with a history of depression and anxiety. Client reported her outpatient providers have been trying to get me to come here for a long time. Client presented to [facility] due to decompensation of mental health symptoms for the past several months. Client reported she was let go from her job due to worsening mental health symptoms. 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 Client reported at admission, she had been feeling overwhelmed, scattered, and unable to control her emotions. Client endorsed erratic sleep, worthlessness, hopelessness, passive thoughts of , low energy, anhedonia, isolative behaviors, and increased appetite. Client also reported ruminations, poor focus, poor memory, racing thoughts, and panic. Client has a history of self-medicating with alcohol. Client's symptoms were interfering with her social, occupational, and familial functioning. 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 Client to step down to IOP level of care to promote mood stability and further reduce symptoms. - Treatment Progress During Treatment & Response: Client responded well to [facility] treatment as she is an attentive participant group session as shown by note taking and contributions to discussion. Client is also engaged in individual sessions as evidenced by her receptiveness to thought challenging, completion of homework, and willingness to set small goals. Client continues to demonstrate motivation to improve her mental health and functioning. Client was receptive to learning new skills and increasing self-awareness. Client has demonstrated progress during [facility] as client denies any passive suicidal thoughts, reports generalizing coping skills, and reports improved ability to cope with stress. Client stated she has been working on challenging negative thoughts, utilizing healthy stress management coping skills, and addressing conflict rather than avoiding it. Client continues to struggle with negative thinking, avoidance, isolation, anxiety, restlessness, racing thoughts, and turning to unhealthy coping skills which she will continue to address during [facility]. Issues Still to be Addressed:: Client has made progress in learning coping skills, increasing awareness, and communicating with supports. Client reports more insight to her negative thoughts and recognizes maintenance cycles that have reinforced depression. Client can benefit from ongoing work on assertive communication, thought challenging, and increasing her social activity. Client continues to struggle with negative thinking, avoidance, isolation, anxiety, restlessness, racing thoughts, and turning to unhealthy coping skills which she will continue to address during IOP. 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 Discharge Recommendations/Instructions:: Recommended to step down to IOP level of care to maintain gains made in PHP, prevent decompensation, and further improve daily functioning. Client reports generalizing coping skills learned and increased self-awareness which she shared has been helpful. Client would benefit from continued support, increased coping skills, and emotional regulation practice. Discharge Handout: Complete Discharge Handout with client on aftercare options and continuity of care.
--- NOTE | 2018-12-16 13:26 | BH.COMM ---
Communication Note - Communication with Client Communication Note: Therapist relayed client's medication concerns to IOP psychiatrist. Therapist was told to inform client that client's increase in anxiety is likely not due to the medication increase. Therapist called client and provided the information. Therapist encouraged client to keep IOP staff updated about changes and to utilize healthy calming coping skills to manage anxiety.
--- NOTE | 2018-12-17 11:11 | BH.SGPN.GN ---
Behaviors/Verbalizations/Mental Status: [Client alert and oriented, casually dressed and groomed. Eye contact good. Motor activity appropriate. Speech within normal limits. Affect congruent, mood anxious. Thoughts linear, logical, no signs of hallucinations or delusions] Client Response/Progress/Benefit: [ Client responded well to session, attentive and mostly engaged throughout, providing minimal input to discussion however. Listened during the group discussion to define and identify differences between internal and external conflict. Client shared she often avoids external conflict she struggles in knowing how to effectively communicate her concerns and often just ?gives in? to the other person?s needs. Reports this negatively impacts her own self-esteem. Group identified the benefits of addressing conflict as improved relationships, feeling empowered, and better mental health. Group completed a challenge activity in which they were faced with potential conflict situations. They did well to relate barriers faced in activity with the potential barriers to facing conflict in own life. Group identified and discussed consequences of not addressing conflict in healthy ways which included: guilt, increased relationship tension, fear and anxiety, and needs not getting met. Client shared that she often struggles to effectively communicate with her supports in times of conflict and would like to be more assertive in her approach. Benefited as she was able to identify own conflict style, as well as increase awareness of how conflict style impacts mental health. Will continue PHP tx to promote the use of healthy coping skills, reduce anxiety, and to improve daily functioning.] Narrative Note: []
== END 2018-12-16 14:00 | disposition home or self-care (01) ==
LOC: BHPHP 09:00
PROVIDERS: Referring Provider Psychiatry & Neurology Psychiatry; Visit Provider Psychiatry & Neurology Psychiatry
DX: F33.2 Major depressive disorder, recurrent severe without psychotic features (principal); F41.1 Generalized anxiety disorder; Z79.899 Other long term (current) drug therapy
CPT/HCPCS: H0035; 90834; 90837; G0410

== ENCOUNTER 2018-12-17 09:09 | Outpatient (RCR) | payer BC, SELFPAY ==
--- NOTE | 2018-12-17 09:05 | BH.SGPN.GN ---
Behaviors/Verbalizations/Mental Status: [] Eye contact is good. Motor activity is appropriate. Appearance is casual. Speech is Appropriate. Mood is anxious. Affect is congruent. Thoughts are linear and logical. No evidence of psychosis. Reviewed daily check in sheet and no reports of suicidal ideations or intent. Client Response/Progress/Benefit: [] Pt participated at time during group discussion. Emotions for today is anxious. Shared some stressors yesterday related to caring for her mother. Reports that she was proud of herself for accomplishing a goal and going for a short walk. Discussed how she used to walk often however had stopped for numerous reasons. She discussed the MH benefits of walking. Also completed some responsibilities that she had been putting off for sometime yesterday. Continues to report anxiety which is impacting her functioning and thoughts however notes that it has lessened. Progress noted. Benefited from group support, encouragement, and feedback. Will continue in IOP to decrease anxiety, improve functioning, and prevent decompensation. Narrative Note: []
--- NOTE | 2018-12-17 10:08 | BH.SGPN.GN ---
Behaviors/Verbalizations/Mental Status: []Client alert and oriented, neatly dressed and groomed. Eye contact good. Motor activity appropriate. Speech within normal limits. Affect constricted, mood anxious. Thoughts linear, logical, no signs of hallucinations or delusions. Client Response/Progress/Benefit: []Client participated in group discussion and taking notes. Client reported not dealing with conflict ?can eat us up inside.? Client reported not manage conflict well can ?turn back on you.? Worked together with the group to define and identify differences between internal and external conflict. Group identified that if one does not address conflict, or if one uses unhealthy ways to manage conflict, it can lead to more conflict. Client worked with group to identify barriers to overcoming conflict which included; frustration, anxiety, fear of additional conflict, complacency, defensiveness, and difficulty articulating. Attentive during psychoeducation on different conflict styles such as avoiding, accommodating, competing, and collaborative. Started to review benefits and drawbacks to each style and will continue in the following group. Benefited as she was able to identify and define conflict as well as increase awareness of how conflict style impacts mental health. Progress noted in client?s increased self-awareness and report of walking yesterday. Client continues to struggle with managing anxiety and depressive symptoms. Will continue IOP to prevent decompensation and improve mood stability.
--- NOTE | 2018-12-23 10:10 | BH.SGPN.GN ---
Behaviors/Verbalizations/Mental Status: []Client alert and oriented, neatly dressed and groomed. Eye contact good. Motor activity appropriate. Speech within normal limits. Affect constricted, mood depressed, anxious. Thoughts linear, logical, no signs of hallucinations or delusions. Client Response/Progress/Benefit: []Client responded well to session, attentive and engaged throughout. Client commented on the quote and stated it is scary, but facing anxiety head on reduces anxiety over time. Client able to provide input to different types of anxiety disorders as well as the difference between ?normal? anxiety and anxiety disorders. Client helped the group identify examples of the various ways anxiety manifests and symptoms associated with thoughts, physical symptoms, and safety behaviors. Client gained awareness of personal physical symptoms which included: lack of focus, shortness of breath, sweating, difficulty making decisions, and vision issues. Client also identified safety behaviors she has engaged in that provide short term relief but increase anxiety over time. Client?s safety behaviors included: drinking, avoidance, and isolation. Client appeared to benefit from gaining insight to safety behaviors and how anxiety manifests itself. Client?s appears to be progressing with increasing awareness of her symptoms, but she continues to report difficulty implementing coping skills on a consistent basis. Will continue tx to prevent decompensation and improve mood stability.
--- NOTE | 2018-12-23 11:15 | BH.SGPN.GN ---
Behaviors/Verbalizations/Mental Status: [Client alert and oriented, casual and neat in appearance. Eye contact good. Motor activity appropriate. Speech within normal limits. Affect congruent, mood euthymic, anxious. Thoughts linear, logical, no signs of hallucinations or delusions.] Client Response/Progress/Benefit: [Pt an attentive and positive participant, mostly engaged during discussion, passive participant in discussion. Pt able to connect with the discussion reviewing three categories of skills for managing anxiety which included mind-based, body-based, and self-soothing. Pt did well to brainstorm with the group various skills within the different categories, expressing interest most in body-based interventions. Pt completed worksheet identifying what relaxation skills she currently uses to manage anxiety and identified what skills she would be willing to begin trying to help manage anxious symptoms. Pt identified she is willing to try the following relaxation skills: journaling, self-talk, aromatherapy, 5 senses, thought challenging, deep breathing, and music. Pt seemed to benefit from increased awareness of healthy skills to manage anxious symptoms and identifying skills willing to practice outside treatment environment. Pt progress variable due to pt self-report of difficulties in consistent skill application. Recommended to continue IOP level of care to continue to promote use of healthy coping skills, improve mood stability, and prevent decompensation.] Narrative Note: []
--- NOTE | 2018-12-23 11:48 | BH.MTP_ITS ---
Master Treatment Plan - Patient Information Program Physician:: Lois Henry Primary Therapist:: Antoinette Cabrera - Psychiatric Diagnoses Psychiatric Diagnoses:: Major depressive disorder recurrent severe without psychosis F33.2, rule out dysthymia, generalized anxiety disorder Diagnosis Code(s):: F33.2 - Estimated LOS Estimated LOS (in weeks):: 6 Problem/Goal #1 - Problem/Goal #1 Stated Goal:: Client will decrease depressive symptoms, isolation, and negative thinking due to Major Depressive Disorder. 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 Being a caregiver is time consuming and exacerbates client's mental health symptoms. Client has used drinking and other unhealthy coping skills to manage the stress from caregiving. Additionally, client reports not having many supports, isolative behaviors, and low self-esteem. Client shared her relationship with her is not the greatest. Client stated most of her adult life has been one crisis after another. For this reason, client reports belief she functions best in crisis which makes it difficult to maintain stability. During PHP, client reported difficulty with consistently applying coping skills which could hinder progress. Functional Impact: Client is a 58-year-old female with a history of depression and anxiety. Client discharged from [facility] and transitioned to [facility] level of care as she can continue to benefit from the structured setting to prevent decompensation. 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 Client continues to report she has been feeling overwhelmed, ?scattered,? and unable to make decisions. Client continues to endorse worthlessness, unhealthy use of coping skills, low energy, poor concentration, anhedonia, isolative behaviors, and increased appetite. Client also reports ruminations, poor focus, poor memory, racing thoughts, and panic. Client has a history of self-medicating with alcohol. Client's symptoms have reduced in intensity and duration, but continue to interfere with her social, occupational, and familial functioning. Goal Relevant Strengths/Supports: Client presents as a kind, resilient, and receptive woman who reports wanting to improve her mental health. Client just finished PHP and is now more knowledgeable of coping skills, warning signs, and thought patterns. 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 Client reports being close with her family. Client is established outpatient counseling and psychiatry. Client is currently not working which is helping client focus more on her mental health. - Objectives Objective #1 Stated Objective: Client will identify and replace 2-3 negative thinking patterns that mediate feelings of guilt, sadness, and negative core beliefs to reduce depressive symptoms. Interventions: Therapist will assist client in developing an awareness of the cognitive messages that reinforce depressive, guilty thinking. Therapist will also assist client in challenging, reframing, and replacing negative thinking patterns. Therapist will provide psychoeducation on depression and help client increase awareness of warning signs and triggers. Discharge Criteria: Client will have achieved this goal when can identify at least 2 negative thinking patterns, replace negative thinking with more positive, affirmative messages. Target Date: 01/27/19 Review Date: 01/15/19 Status: open Objective #2 Stated Objective: Client will learn and utilize 2-3 healthy coping strategies to better manage depressive symptoms and reduce DSM-5 symptoms for depression. Interventions: Through group and individual sessions, therapist will help client identify triggers and warning signs of depression and emotional dysregulation including emotional, physical, and behavioral changes. Therapist will teach client various coping skills to manage her symptoms. Therapist will use cognitive restructuring techniques and help client gain awareness of negative thoughts that reinforce depressive cycles. Therapist will help client incorporate mindfulness, opposite action, and goal setting. Discharge Criteria: Client will have met this goal when she can report learning and using at least 2 coping skills to manage depressive symptoms and her DSM-5 scores for depression have decreased. Target Date: 01/27/19 Review Date: 01/15/19 Status: open Problem/Goal #2 - Problem/Goal #2 Stated Goal:: Client will decrease ruminating thoughts which cause anxiety and improve emotional regulation skills. 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 Being a caregiver is time consuming and exacerbates client's mental health symptoms. Client has used drinking and other unhealthy coping skills to manage the stress from caregiving. Additionally, client reports not having many supports, isolative behaviors, and low self-esteem. Client shared her relationship with her is not the greatest. Client stated most of her adult life has been one crisis after another. For this reason, client reports belief she functions best in crisis which makes it difficult to maintain stability. During [facility], client reported difficulty with consistently applying coping skills which could hinder progress. Functional Impact: Client is a 58-year-old female with a history of depression and anxiety. Client discharged from [facility] and transitioned to [facility] level of care as she can continue to benefit from the structured setting to prevent decompensation. Client is the primary caregiver for her mother who has A lzheimer's. Client continues to report she has been feeling overwhelmed, ?scattered,? and unable to make decisions. Client continues to endorse worthlessness, unhealthy use of coping skills, low energy, poor concentration, anhedonia, isolative behaviors, and increased appetite. Client also reports ruminations, poor focus, poor memory, racing thoughts, and panic. Client has a history of self-medicating with alcohol. Client's symptoms have reduced in intensity and duration, but continue to interfere with her social, occupational, and familial functioning. Goal Relevant Strengths/Supports: Client presents as a kind, resilient, and receptive woman who reports wanting to improve her mental health. Client just finished [facility] and is now more knowledgeable of coping skills, warning signs, and thought patterns. 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 Client reports being close with her family. Client is established outpatient counseling and psychiatry. Client is currently not working which is helping client focus more on her mental health. - Objectives Objective #1 Stated Objective: Client will identify 2-3 anxiety triggers and 2 coping skills to use when feeling anxious to reduce anxiety as shown by decreased DSM-5 scores. Interventions: Through group and individual sessions client will increase awareness of anxiety triggers. Therapist will teach client various coping strategies to promote emotional regulation and reduction of anxiety. Therapist will discuss the importance of self-care to avoid burnout and reduce stress while helping client establish clearer boundaries and communication with supports. Discharge Criteria: Client will have accomplished this goal when can report at least 2 triggers for anxiety and state using 2 coping strategies to manage symptoms. Additionally, client will have met this goal when her DSM-5 scores for anxiety have decreased. Target Date: 01/27/19 Review Date: 01/15/19 Status: open Objective #2 Stated Objective: Client will identify 2-3 cognitive distortions or mistaken beliefs that lead to rumination and learn 2-3 ways to manage these thoughts to reduce anxiety. Interventions: Therapist will provide education on the most common cognitive distortions and teach client the connection between thoughts, emotions, and feelings. Therapist will assist client in identifying, challenging, and replacing dysfunctional thoughts with positive, more realistic thoughts. Therapist will use CBT and DBT techniques to help client gain awareness of thinking errors and learn how to more effectively handle negative thoughts. Discharge Criteria: Client will have accomplished this goal when can identify at least 2 cognitive distortions and at least 2 coping skills to manage negative thoughts. Target Date: 01/27/19 Review Date: 01/15/19 Status: open
--- NOTE | 2018-12-23 12:42 | BH.DR.ITP ---
Initial Treatment Plan - Patient Information Visit Information: ADMISSION DATE: EXPECTED LOS: 4-6 weeks - Problems/Symptoms Problem #1:: Depression Symptom:: Sadness, rumination Problem #2:: Anxiety Symptom:: worrying, rumination
--- NOTE | 2018-12-23 12:45 | PCM.BH.PN ---
Progress Note Progress Note: Chief Complaint: [Depression and anxiety] History of Present Illness/Interim History: [] Patient was seen 2 weeks ago for depression and anxiety and at that time her Paxil was increased to 30 mg p.o. daily. she is seen today in follow-up for this medication change. She states that she feels her anxiety is a little better and her mood is a little less depressed. She tolerated the increase in her medication and has no side effects from it. She continues to have ongoing stressors of caring for her mother with dementia. She still has low energy at times and has trouble motivating herself. She feels that slowly she is improving and feels she is benefiting from the IOP program. She is not having panic attacks since last visit. She denies any thoughts of suicidal ideation or thoughts of self-harm. Patient expresses desire to quit smoking and requests Zyban to help her quit smoking. He took it in the past and tolerated it. Current Psychiatric Medications: Paxil 30 mg p.o. daily. She remains on the same doses of trazodone and BuSpar and Ativan. [] Review of Symptoms: [] Negative except as noted in present illness Mental Status Examination: Patient is a 57-year-old female who appears normal for stated age. She is casually dressed and groomed with good hygiene. She is cooperative throughout the interview. She has no psychomotor agitation or retardation. Speech is normal and eye contact is good. Her mood is depressed. Affect is less flat and constricted than before. Thought processes organized and goal-directed. Thought content no evidence of hallucinations or delusions. No evidence of suicidal or homicidal ideation. [] Diagnoses: [] Lincoln I: [] Major depressive disorder recurrent severe without psychosis, rule out dysthymia, generalized anxiety disorder Lincoln II: [Deferred] Lincoln III: [] Plan: [] She will continue with the medications at the current doses. She continues to require the IOP program although we do feel that she is able to step down from PHP to IOP. But she will continue to benefit from the structure, education, group therapy and support to prevent exacerbation of her symptoms requiring inpatient admission. She understands risks options possible complications of her medications. She is clinic continue to try eating healthfully and and continue trying to walk for exercise. I did add Wellbutrin SR 100 mg p.o. twice daily to help her quit smoking. She understands this may help her depression also. She is able to maintain safety at this point and if she feels unsafe she will let us know or go to the emergency room. I will see her in 2 weeks to see how she is doing on the Wellbutrin SR.
--- NOTE | 2018-12-23 14:28 | BH.MDN_ITS ---
Multi-Disciplinary Note - Note 60-min Individual Time Started:: 09:07 Date: 12/23/18 Purpose of session/treatment goals addressed:: The purpose of this session was to address current symptoms, stressors, and barriers to progress. Another goal was to set small goals to promote behavioral activation. Other topics included: thought challenging, opposite action, and self-sabotage. Eye Contact:: Fair Motor Activity:: Appropriate Appearance:: Neat Speech:: Appropriate Mood:: Anxious, Dysthymic Affect:: Congruent, Other - tearful Thoughts:: Racing, No evidence of hallucinations/delusions noted Staff Interventions:: Therapist used active listening and open-ended questions to explore client's current symptoms, stressors, and barriers. Therapist used strengths perspective and cognitive restructuring to combat client?s self- depreciating and self-doubting language. Therapist discussed depressive maintenance cycles and gently challenged client on her self-sabotaging behaviors. Therapist helped client identify the benefits of engaging in opposite action to break out of depressive maintenance cycles. Therapist assisted client in setting a goal for the week. Client Response:: Client responded well to session, receptive to meeting with therapist. Client shared she has been feeling flat and is struggling with being stuck in the hole. Client reported external stressors in her life have started to lessen and now client recognizes I know I'm my own biggest stressor. Client acknowledges that she has not been using coping skills and has not been motivated to follow through with her goals. Client recognizes that this is likely contributing to recent regression. Client and therapist discussed the benefits of opposite action, thought challenging, and daily routine. Client stated she would like to get a job to add structure to her life, but she fears failing and does not know what she wants to do. Client acknowledged that because she struggles with knowing what she wants, this makes decision making hard for client. Client stated this results in client making quick, impulsive decisions when she feels overwhelmed. Client and therapist discussed setting small goals to promote behavioral activation. Client willing to clean one bag in her laundry room and write down three things she deserves credit for. Risks/Concerns:: Client denies any suicidal ideations, plan, or intent as of 12/23/18. Progress Toward Goals/Plan:: Client was demonstrating progress towards treatment goals, but recently reports a regression of symptoms. Client admits to not using coping skills and shared ?I know I?m my biggest stressor.? Client continues to not drink to cope which is positive, but client shared she has been isolating and avoiding tasks. Client currently endorses lack of motivation, apathy, low energy, negative thinking, and anhedonia. Client shared she knows she needs to make changes but has little motivation to do so. Client reports feeling ?stuck in a hole? which makes her anxious and overwhelmed. Client acknowledges the consequences of not applying coping skills or challenging her thinking. Willing to practice skills for homework and work on small goals. Will continue IOP tx to prevent further decompensation and improve mood stability. Time Stopped:: 10:00
--- NOTE | 2018-12-25 09:04 | BH.SGPN.GN ---
Behaviors/Verbalizations/Mental Status: []Client alert and oriented, neatly dressed and groomed. Eye contact good. Motor activity appropriate. Speech within normal limits. Affect flat, mood depressed, anxious. Thoughts linear, logical, no signs of hallucinations or delusions. Reviewed client?s symptom tracker, no risk for suicidal ideation, plan, or intent as of 12/25/18. Client Response/Progress/Benefit: []Client responded well to session, less vocal than usual, but receptive to support from peers. Client reports feeling ?flat? today. Client declined to provide details on her stressor, but client shared she did not follow through with plans last night and ?now my family is really mad at me.? Client shared she wants to isolate and not be around people. Client acknowledged that isolating will only reinforce depression. Client stated making it to group today was a ?major win? as client did not want to come to IOP today. Client reported ?I already had my cancellation speech.? Client receptive to supportive feedback and gentle challenging from therapist about healthy ways client can cope with depression. Client appeared to benefit from connecting with peers rather than isolating. Will continue IOP tx as client continues to endorse a depressed mood, isolative behaviors, and low energy. Client reported limited application of coping skills which may be contributing to limited progress.?
--- NOTE | 2018-12-25 10:12 | BH.SGPN.GN ---
Behaviors/Verbalizations/Mental Status: []Client alert and oriented, neatly dressed and groomed. Eye contact good. Motor activity appropriate. Speech within normal limits. Affect flat-tearful, mood depressed. Thoughts linear, logical, no signs of hallucinations or delusions Client Response/Progress/Benefit: []Client participated in group discussion and worksheet activity. Client connected with the quote and shared a difficult situation can open one?s eyes and heart, ?but you have to look for it.? Worked together with the group to define a crisis and discuss examples of crisis situations. Client helped the group explore how coping with crisis in unhealthy ways can lead to a mental health crisis. Client stated one can prevent external crises from turning into internal crises by recognizing early warning signs and using coping skills. Client shared she has turned to unhealthy coping skills ?and once one doesn?t work I turn to another.? Group identified warning signs one could have which included; drinking, distractions, avoidance, sleeping, and crying. Client completed her own personal warning signs worksheet. Client identified her top three crisis warning signs to be loss of motivation, isolation, and unusual drop in functioning. Benefited from group by increasing awareness of crisis and personal warning signs. Progress noted as client reported increased self-awareness of how her maladaptive coping skills are keeping her stuck. Will continue IOP tx to prevent decompensation and improve mood stability.
--- NOTE | 2018-12-28 10:20 | BH.SGPN.GN ---
Behaviors/Verbalizations/Mental Status: []Client alert and oriented, casually dressed and groomed. Eye contact good. Motor activity appropriate. Speech within normal limits. Affect congruent, mood dysthymic. Thoughts linear, logical, no signs of hallucinations or delusions. Client Response/Progress/Benefit: []Pt listened attentively to peers and provided input at times during session. Pt appeared to connect with peers comments about the impact perception of failure can have on mental health. Pt reported she tends to give up in response to a setback. Pt stated she could connect with thought that she sometimes views herself as a failure and as flawed. Group identified consequences of fear of failure to include: stagnation, isolation, giving up, not trying new things, and unhealthy relationships. Pt seemed to benefit from increased awareness of how fear of failure can impact mental health. Pt to continue IOP level of care to improve generalization of healthy coping skills, continue to identify and challenge distorted thoughts, and prevent decompensation. Narrative Note: []
--- NOTE | 2018-12-28 11:23 | BH.SGPN.GN ---
Behaviors/Verbalizations/Mental Status: []Client alert and oriented, neatly dressed and groomed. Eye contact fair-back to the transition lead at times. Motor activity appropriate. Speech within normal limits. Affect constricted, mood depressed. Thoughts linear, logical, no signs of hallucinations or delusions Client Response/Progress/Benefit: []Client taking notes and providing feedback to discussion. Client completed fear of failure worksheet and shared with group. Client reported fear of failure has been keeping her stuck and preventing forward growth. Client shared fear of failure is keeping client from being confident, being social, enjoying things in life, and getting better. Client identified barriers to overcoming fear of failure which included; self-sabotage, lack of motivation, anxiety, lack of boundaries, negative self-talk, lack of self-love, and procrastination. Client identified things that she can do to overcome fear of failure such as; setting small goals, focus on the wins, working on acceptance and self-compassion, and challenging perspective. Client reported her goal this week is to look at the consequences of not trying as a way to motivate herself. Benefited from identifying the impact that fear of failure has had on her life and developing strategies to overcome this. Client self-reported lack of generalizing coping skill and client acknowledges this may be hindering her progress. Client will continue IOP to prevent further decompensation and improve mood stability.
--- NOTE | 2018-12-28 14:08 | BH.MDN ---
Multi-Disciplinary Note - Note 45-min Individual Time Started:: 09:19 Date: 12/28/18 Purpose of session/treatment goals addressed:: The purpose of this session was to address current stressors, symptoms, and barriers to progress. Another goal was to address self-sabotage. Other topics included decision balance and strengths. Eye Contact:: Fair Motor Activity:: Appropriate Appearance:: Casual Speech:: Tangential, Rambling Mood:: Dysthymic Affect:: Flat Thoughts:: Circular, No evidence of hallucinations/delusions noted Staff Interventions:: Therapist used active listening and open-ended questions to explore client's current symptoms, stressors, and barriers to follow through. Therapist discussed depressive maintenance cycles and gently challenged client on her continued self-sabotaging behaviors. Therapist used strengths perspective to help client recognize areas of growth and promote change. Therapist used motivational interviewing techniques to help client identify the pros and cons associated with changing versus not changing behaviors that impact mental health. Therapist assisted client in setting a goal for the week and gave client a log to keep track of skills used. Client Response:: Client responded well to session, receptive to meeting with therapist. Client shared she did not follow through with her goals from last week. Client started session by saying ?I know I need to use them? how will I get better if don?t.? Client acknowledges that she has not been using coping skills and has not been motivated to follow through with her goals. Client recognizes that she is engaging in self-sabotaging behaviors and ?I?m not helping myself.? Client stated she has a hard time holding herself accountable and was willing to use a log to track her use of coping skills. Client shared her negative self-talk and self-hate is also contributing to her difficulty with making progress. Client reported when she does not accomplish a goal, client is hard on herself which only further reinforces depression. Client willing to write out three positive qualities three times a week. Client and therapist discussed the pros and cons of changing behaviors versus not changing behaviors. Client recognizes that if she does not start making changes, she will continue to feel stuck and be depressed. Client acknowledges that changing her behaviors and negative self-talk will be hard, but it is possible with consistency. Client able to reflect on the positive changes she has been able to make in the past including no longer drinking to cope and not binge eating to cope. Risks/Concerns:: Client denies any suicidal ideations, plan, or intent as of 12/28/18. Progress Toward Goals/Plan:: Client continues to report a regression of symptoms and lack of application of coping skills. Client reported ?I know I need to use them? how will I get better if I don?t.? Client continues to endorse lack of motivation, apathy, low energy, negative thinking, and anhedonia. Client also continues to report feeling anxious and not knowing what she wants in life. Reports feeling overwhelmed and acknowledges use of self-sabotaging behaviors. Willing to practice skills for homework and work on small goals. Will continue IOP tx to prevent further decompensation, increase application of coping skills, and promote emotional regulation. Time Stopped:: 10:15
--- NOTE | 2018-12-30 09:10 | BH.SGPN.GN ---
Behaviors/Verbalizations/Mental Status: []Client alert and oriented, neatly dressed and groomed. Eye contact good. Motor activity appropriate. Speech within normal limits. Affect constricted, mood euthymic. Thoughts linear, logical, no signs of hallucinations or delusions. Reviewed client?s symptom tracker, no risk for suicidal ideation, plan, or intent as of 12/30/18. Client Response/Progress/Benefit: []Client responded well to session, engaged throughout. Client reports feeling ?energetic? today but does not know what is contributing to her improved mood. Client shared today ?is just an awesome day, I woke up like this.? Client stated she is trying to take advantage of her good mood and she made a list of things she wants to accomplish today. Client reported she is also aware to not put too many things on her list because she does not want to overwhelm herself. Client shared yesterday was not a good day for her and client reported ?I didn?t do anything.? Client reported she did not use any coping skills yesterday either. Client recognized that her ongoing lack of application of coping skills may hinder progress. Client appeared to benefit from connecting with peers. Progress noted in client?s improved mood today, however, client continues to struggle with maintaining a consistent mood and applying coping skills daily. Will continue IOP tx to promote mood stability and increase application of coping skills.
--- NOTE | 2018-12-30 10:15 | BH.SGPN.GN ---
Behaviors/Verbalizations/Mental Status: [] Eye contact is good. Motor activity is appropriate. Appearance is casual. Speech is Appropriate. Mood is flat. Affect is depressed. Thoughts are linear and logical. No evidence of psychosis. Client Response/Progress/Benefit: [] Pt was an active participant in group activity and discussion. Provided insight on quote of the day. Group worked together to identify what are pitfalls when it comes to mental health recovery which included; lack of awareness, lack of motivation, cognitive distortions, poor boundaries, toxic relationships, shutting down, isolating, and negative thoughts. Group discussed the impact of pitfalls and how these can impact progress. Attentive during psychoeducation. Pt participated in group activity. Pt admitted to getting irritable and frustrated with the activity, however was calm and participated in suggestions. Was able to relate this to feelings associated with encountering a mental health pitfall. Group identified that when they encountered challenges during the activity they began to; boyer things, began to focus on failing, had increased negative thoughts, and became overstimulated and overwhelmed. Related these to emotions and actions that occur when they encounter mental health pitfalls. Benefited from group by increased awareness on recognizing and understanding the impact of mental health pitfalls. Narrative Note: []
--- NOTE | 2018-12-30 11:14 | BH.SGPN.GN ---
Behaviors/Verbalizations/Mental Status: [Client alert and oriented, casually dressed and neatly groomed. Eye contact good. Motor activity appropriate. Speech within normal limits. Affect congruent to topic being discussed, mood dysthymic and anxious. Thoughts appearing consistent with some rumination, no signs of hallucinations or delusions. ] Client Response/Progress/Benefit: [Pt receptive of session, somewhat engaged throughout though remaining a mostly passive participant and providing limited input to group discussion. Attentive and taking notes during discussion. Pt completed a worksheet where she identified personal pitfalls which included: difficulties managing emotions, lack of motivation, negative value of self, and ?not knowing how to live without crisis?. Pt was an active listener during discussion on how the strategies used to overcome pitfalls in challenge activity could be applied to daily life. Group worked together to identify strategies to overcome personal and general pitfalls. Pt identified personal strategies to try as: setting boundaries, small goals, and acknowledging accomplishments. Benefited from identifying personal and general pitfalls and strategies to over these pitfalls. Pt has made progress in IOP with increasing self-awareness though continues to struggle with consistent skill application outside of tx environment. Recommended continue tx to promote change behaviors, improve use of healthy decisive action, regulate emotions, and prevent decompensation.] Narrative Note: []
== END 2018-12-30 23:59 ==
LOC: BHIOP 09:09
PROVIDERS: Referring Provider Psychiatry & Neurology Psychiatry; Visit Provider Psychiatry & Neurology Psychiatry
DX: F33.2 Major depressive disorder, recurrent severe without psychotic features (principal); F41.1 Generalized anxiety disorder; Z79.899 Other long term (current) drug therapy
CPT/HCPCS: H0035; 90834; 90837; 90853

== ENCOUNTER 2019-01-01 09:00 | Outpatient (RCR) | payer BC, SELFPAY ==
[2014-04-03 13:51] VITALS: BMI 24.4
--- NOTE | 2019-01-01 09:06 | BH.SGPN.GN ---
Behaviors/Verbalizations/Mental Status: [Client alert and oriented, casually dressed and neatly groomed. Eye contact good. Motor activity appropriate. Speech within normal limits. Affect congruent to topic being discussed, mood euthymic, anxious. Thoughts at times appearing blocked, however pt able to regain train of thought on various occasions, linear and logical, no signs of hallucinations or delusions. Reviewed daily check in sheet, pt denies any current SI, plan, or intent.] Client Response/Progress/Benefit: [Pt engaged in group discussion, actively listening and providing more input and feedback than usual baseline. Emotion for today is pleasant. Pt indicated that current emotion is due to starting to actively apply skills of decisional balance and positive self-talk. Indicates this is both a mental health win and significant progress for her as she has known the skills but not challenged herself to apply them until this week, Additional win is using internal coping skills to ease stress associated with having her grandchildren stay over last night. Shared current stressor is not knowing what she wants for her life and feeling as though she is starting a whole new chapter. Indicated that she feels as though she is starting over. Pt receptive of and appearing to benefit from feedback and support provided by fellow participants. Pt recommended continued IOP tx to promote use of coping skills, improve communication about mental health, and prevent decompensation. ] Narrative Note: []
--- NOTE | 2019-01-01 10:10 | BH.SGPN.GN ---
Behaviors/Verbalizations/Mental Status: []Client alert and oriented, neatly dressed and groomed. Eye contact good. Motor activity appropriate. Speech within normal limits. Affect constricted, mood anxious. Thoughts linear, logical, no signs of hallucinations or delusions. Client Response/Progress/Benefit: []Client was an active participant in group activity and discussion. Client connected with the topic and able to identify common barriers that keep people stuck from moving forward. Worked with group to identify common internal barriers that keep people stuck which included; fear of the unknown, fear of failure, unmanaged emotions, not applying coping skills, negative thoughts, self-doubt, and lack of motivation. Client identified her current reality as feeling hopeless, feeling insecure, lacking motivation, feeling overwhelmed with life choices, and being fearful of failing. Client shared her realistic, desired reality would be client feeling ?at peace with myself? meaning she would have more control of her emotions and feel more confident. Client reported she is not yet at her desired reality ?but I?m much closer than when I started IOP.? Client identified personal strengths including; resilience, learning new coping skills, and not giving up as positives that will help client move closer to her desired reality. Benefited from group as client was able to identify current mental health state and barriers that are impacting progress. Will continue IOP to increase consistent use of coping skills to reduce anxiety and depression.
--- NOTE | 2019-01-01 12:23 | BH.NA ---
Physical Data - Height/Weight Height: 1.65 m Weight:: 82 kg Weight in Pounds: 180.8 lbs Current Medication Compliance - Medication Compliance Do you take your medication as prescribed?: Yes Do you need assistance with taking medication?: No Have you had side effects from medication?: No Nutritional History - Appetite Nutritional Instructions:: If client shows signs of a swallowing problem, weight change of 10 pounds or more in the last month, or is on a diabetic diet, the physician will review and request a dietitian consult, as appropriate. All unintentional weight loss will be referred to the physician for decision on need for dietitian consult. Describe your appetite:: Good Have you noticed a change in your eating habits lately?: Yes - binge eating and 40# wt gain in the past year Functional Assessment - Sleep Pattern Describe any problems with sleeping: Client denies significant issues with sleep. - Activities Motor Activity:: Functional Sensory/Communication Assess - Vision Problems Do you have any vision problems?: None - Hearing Problems Do you have any hearing problems?: Adequate - Communication Problems Do you have difficulty understanding what people are saying?: No Do you have trouble putting your thoughts into words or expressing what you want to say?: No Do people ever have trouble understanding what you say?: No What is your primary language?: Nigerian Learning Assessment - Learning Barriers Learning Barriers:: Ready to learn Medical Problems/History - Pain Assessment Do you have acute or chronic pain?: No - Female Reproductive Do you think you may be ?: No Have you reached menopause?: Yes Do you have any history of breast disease?: No Surgical History - Surgical History Have you had any surgeries? If so, list type and date:: Yes - R rotator cuff repair, L partial knee replacement Substance Abuse - Substance Abuse Please describe substance abuse in the last 30 days:: Client notes drinking 2-3 beers weekly and vodka mixed drinks a couple times a month. Actively decreasing tobacco use to <1ppd. Denies illicit substance use/abuse. Mental Status Summary - Mental Status Significant Findings/Observations on Appearance and Mood:: Craig is A&Ox3, cooperative with interview, and makes good eye contact. Hygiene and grooming are appropriate, neatly dressed. Speech is clear and of normal rate and volume. Moderate depression and anxiety. Mood congruent affect. Logical associations. Normal process. Client is somewhat preoccupied with her mother's dementia diagnosis and her role as caregiver. Fair knowledge and insight. No symptoms of delusions. Denies hallucinations, HI, and SI. Suicide Assessment - Suicidal Ideation Are you currently or have you been suicidal in the past?: No Suicidal Intentional Rating Scale (SIRS): No suicidal thoughts (past or present) Physician Notification: If Active suicidal thoughts/Will not contract for safety is checked, contact physician and document in the Physician Notification section below. Past Psychiatric History - MH Treatment Hx Past Psychiatric Medications:: Wellbutrin, Effexor, Lamictal ECT Therapy Details:: N/A Age of first mental health symptoms: since 20's, but much worse the past couple years Current providers for mental health treatment (counselor, psychiatrist, pillowcase turner, etc.): Deborah Win NP - [facility]. CHRISTINA Dukes - PCP Fall Risk Assessment - Age Age: Less than 60 - Mental Status Mental Status: Willing & able to ask for assistance when needed - Physical Status Physical Status: No problems - Impairments Impairments: None - Elimination Elimination: Continent AND independent - Gait or Balance Gait or Balance: Walks independently - Hx of Falls History of falls in the past 6 months: No known history - Medications/Substances Psychotropics:: Antidepressants, Anxiolytics (e.g. benzodiazepines) Medications/substances used within the past 24 hours or ordered to administer: 3 or more of the medications/substances listed above - Total Score Total Points:: 2 Physician Notification - Physician Notification Physician Notified: Lois Henry Method of Notification: Face to Face Comments: treatment planning discussion RN Summary of Impressions - Impressions Recommendations: Include psychiatric and medical issues, treatment planning recommendations, and discharge planning needs. Impressions: Psychiatric Issues: anxiety Impression: Medical Issues: N/A Impressions: Treatment Planning Recommendations: Client needs skills training and reminders/encouragement to utilize said skills. Impressions: Discharge Planning Needs: Client is connected with couselor and management psychologist, has PCP. No discharge needs identified. - Level of Care How do the client's current symptoms and functional deficits support need for this level of care?: Craig notes a significant decompensation in her mental health for the past several months. She identifies her role as primary caregiver for her mother, who has late-stage dementia, as her main stressor. She notes that she feels constantly overwhelmed and anxious, which has caused her to lose her job due to lack of performance and decreased attendance. Craig has been isolating and avoiding leaving her house. Client endorses binge eating related to her anxiety and a 40# weight gain in the past year. She does have intermittent passive thoughts of , noting it would be easier to not wake up to deal with this everyday. Of note, the client has a brother who completed suicide, which increases her risk even though she denies SI. Client is currently on 2 antidepressants, a benzo, and buspar; she also is receiving OP psychiatric services with ongoing decompensation. IOP will promote gains, provide social support, and prevent further decompensation.
--- NOTE | 2019-01-04 09:05 | BH.SGPN.GN ---
Behaviors/Verbalizations/Mental Status: []Client alert and oriented, casual dress, hygiene tended to. Eye contact fair. Motor activity appropriate. Speech within normal limits. Affect flat, mood depressed. Thoughts linear, logical, no signs of hallucinations or delusions. Reviewed client?s symptom tracker, no signs of suicidal ideation, plan, or intent as of today. Client Response/Progress/Benefit: []Pt was passive participant AEB pt sharing thoughts when elicited by therapist. Pt reported reported she had a rough weekend because her was gone and she was feeling lonely. Pt stated she beat myself up because she reverted back to old coping habits this weekend. Pt did not elaborate as to what old coping habits she used. With assistance pt had awareness that beating herself up isn't helping her mental health, only maintaining guilt and depressive symptoms. Pt able to identify mental health positive is attending IOP today, despite not wanting to come because of the rough weekend. Pt progress is minimal AEB pt struggling to consistently apply healthy coping skills outside treatment environment. Pt to continue IOP to increase consistent use of healthy coping skills, prevent decompensation, and identify and challenge distorted thoughts. Narrative Note: []
--- NOTE | 2019-01-04 10:18 | BH.SGPN.GN ---
Behaviors/Verbalizations/Mental Status: []Client alert and oriented, neatly dressed and groomed. Eye contact good. Motor activity appropriate. Speech within normal limits. Affect flat, mood dysthymic. Thoughts linear, logical, no signs of hallucinations or delusions. Client Response/Progress/Benefit: []Client was mostly quiet, but she occasionally contributed to group discussion and participated in activity. Attentive and engaged during discussion of how emotions and negative thinking impact ability to change. Client reported change can mean ?leaving behind unhealthy coping skills? which can cause someone to feel sad. Worked with the group to identify benefits to making changes in our lives which included; improved self-esteem, improved mental health, better coping skills, and better opportunities. Group then identified barriers to change or what keeps us from making changes which included; negative thinking, unmanaged mental health symptoms, fear of the unknown, anxiety, fear of failure, insecurity, lack of motivation, and ambivalence. Client participated along with group in activity where they identified and discussed the emotions related to change. Benefited from increased awareness and understanding of emotions, benefits, and barriers related to change. Client continues to show variable progress due to self-reported inconsistent use of coping skills. Will continue IOP to prevent decompensation.
--- NOTE | 2019-01-04 11:20 | BH.SGPN.GN ---
Behaviors/Verbalizations/Mental Status: [Eye contact good. Motor activity is appropriate. Appearance is casual and neat. Speech is appropriate rate and tone. Mood is euthymic. Affect is congruent with mood. Thoughts are linear and logical. No evidence of psychosis.] Client Response/Progress/Benefit: [Client receptive to session, attentive and providing some insight to discussion. Client at times appearing distracted by own thoughts, though actively engaged when prompted. Client participated in the activity and processed emotions and barriers associated with making change. Client appeared to connect with discussion on weighing the pros and cons associated with change and benefited from learning to do so through use of decisional balance sheet. Identified a change he would like to make to improve mental health as: increasing self-care strategies and reducing isolation. Client reported potential benefits of change as: decreasing anxiety and depression, improved relationships, more positivity, and increased self-confidence. While the costs of not making the change included: continued anxiety, burnout, depression, failing/letting others down. Progress noted in ability to identify how making this change may promote additional healthy behaviors and thinking patterns. Recommended continued IOP to continue to promote use of healthy coping skills and improve interpersonal effectiveness skills.] Narrative Note: []
--- NOTE | 2019-01-05 09:03 | BH.SGPN.GN ---
Behaviors/Verbalizations/Mental Status: []Client alert and oriented, neatly dressed and groomed. Eye contact good. Motor activity appropriate. Speech within normal limits. Affect flat, mood apathetic. Thoughts linear, logical, no signs of hallucinations or delusions. Reviewed client?s symptom tracker, no risk for suicidal ideation, plan, or intent as of 01/05/19. Client Response/Progress/Benefit: []Client responded somewhat well to session, receptive to feedback, but quiet. Client reports feeling ?numb? and not connected today. Client stated she continues to struggle with guilt and procrastination. Client reported she cannot make herself do things at home which then leads to self-blame and negative thinking. Client shared she is grateful because her family has been supportive of client while she is getting mental health help. Client stated at times she feel undeserving her their support. Group able to help client recognize and challenge this negative thinking. Client reported being at IOP has helped client learn more about herself and have less ?tunnel vision.? Appeared to benefit from receiving supportive statements and connecting with peers. Will continue PHP to prevent decompensation, reduce depression, and challenge distortions.?
--- NOTE | 2019-01-05 10:08 | BH.SGPN.GN ---
Behaviors/Verbalizations/Mental Status: [Client alert and oriented, neat and casually dressed and groomed. Eye contact good. Motor activity appropriate. Speech within normal limits. Affect congruent, mood anxious, euthymic. Thoughts linear, logical, no signs of hallucinations or delusions.] Client Response/Progress/Benefit: [Client remained a mostly active participant during group AEB client contributing to discussion and making connections throughout. Client reported it is important to have a variety of social supports and shared connecting with a participant who discussed how family acted as a safety net for her when she struggled in the past. Client helped group brainstorm potential consequences of not having a support system and barriers to developing social supports, which included: feeling like a burden, lack of effective communication, anxiety, and not knowing where/how to find healthy supports, struggling to set boundaries with unhealthy supports. Group identified benefits of social support as: encouraging us, increased motivation, less loneliness, different perspective, help us challenge ?what if? thoughts, ?keep you grounded?, and accountability. Client reported when she feels supported, she feels less anxious and more capable of managing stressors. Client took an active listening role during the group activity and was open to feedback from others. Appeared to benefit from gaining awareness of barriers that keep people from seeking social support as well as identifying the benefits of increasing support. Client progressing AEB client being actively engaged in group despite high anxiety levels. Will continue IOP tx to reduce depression and anxiety, improve symptom management and healthy communication, and prevent decompensation.] Narrative Note: []
--- NOTE | 2019-01-05 11:20 | BH.SGPN.GN ---
Behaviors/Verbalizations/Mental Status: []Eye contact is good. Motor activity is appropriate. Appearance is casual, appropriate grooming. Speech is Appropriate. Mood is dysthymic. Affect is constricted. Thoughts are linear and logical. No evidence of psychosis. Client Response/Progress/Benefit: []Client responded well to session, contributed thoughts at times during discussion and listened attentively to others. Client helped the group discuss and identify different social supports as well as the benefits of different supports. The group identified examples of personal, self-help, professional, spiritual, and co-worker social supports. Group identified benefits of each type of social support. Client reported she wants to increase her self-help support which would benefit her by connecting with others that have similar problems. Client appeared to benefit from increasing understanding of different types of social support and identifying ways she can improve. Client continues to struggle with depressed mood and difficulty applying healthy skills. Client to continue IOP to prevent decompensation, increase use of coping skills, and challenge distorted thoughts. Narrative Note: []
--- NOTE | 2019-01-05 14:02 | BH.MDN_ITS ---
Multi-Disciplinary Note - Note 45-min Individual Time Started:: 12:12 Date: 01/05/19 Purpose of session/treatment goals addressed:: The purpose of this session was to address current stressors, symptoms, and barriers to progress. Another goal was to address self-sabotage and identify pleasurable activities. Other topics included: strengths and challenging negative thoughts. Eye Contact:: Good Motor Activity:: Appropriate Appearance:: Neat Mood:: Dysthymic Affect:: Flat Thoughts:: Other - difficulty articulating thoughts., No evidence of hallucinations/delusions noted Staff Interventions:: Therapist used active listening and open-ended questions to explore client's current symptoms, stressors, and barriers to follow through. Therapist discussed depressive maintenance cycles and gently challenged client on her continued self-sabotaging behaviors. Therapist helped client identify strategies that may promote change and improve motivation. Therapist used strengths perspective and cognitive restructuring to help client reframe self- depreciation and minimization. Therapist explored different activities that may interest client and helped client set a goal for tonight. Client Response:: Client responded well to session, open to meeting with t herapist. Client reported she continues to feel stuck and frustrated with herself. Client reported I can't make myself do things. Client shared she spent the weekend isolating and not accomplishing many things. Client endorses negative thinking, self-deprecation, anhedonia, and low motivation. Client and therapist discussed behavioral activation and how one cannot wait until they are happy to engage in activities, behavior can precede emotion. Client able to challenge her self-depreciation and identify activities she has been able to accomplish. Client has been able to keep up with some house work and taking care of her mother. Client reports feeling no pleasure in things and recognizes that she wants to have more structure and purpose, but nothing interests me. With therapist exploration, client recognized that she enjoys cooking, gardening, and she used to enjoy monique. Client reports she is willing to get back into monique and was smiling while talking about it. Client set a goal to cook tonight and shared it will help her feel better and promote a sense of accomplishment. Risks/Concerns:: Client denies any suicidal ideations, plan, or intent as of 01/05/19 Progress Toward Goals/Plan:: Client continues to report a depressed mood, lack of motivation, anhedonia, and lack of application of coping skills. Client self- reports lack of follow through with personal goals and states, ?I can?t force myself to do things.? Client able to identify current things she has been accomplishing to challenge self-depreciation. Client also continues to report feeling anxious and not knowing what she wants in life. Reports feeling overwhelmed and acknowledges use of self-sabotaging behaviors. Will continue IOP tx to prevent further decompensation, increase application of coping skills, and promote emotional regulation. Therapist to discuss barriers and progress with treatment team to promote best practice. Time Stopped:: 13:03
--- NOTE | 2019-01-07 11:50 | BH.COMM ---
Communication Note - Communication with Client Communication Note: Therapist spoke with client's outpatient therapist, Rhianna Huizar, over the phone today for continuity of care purposes. Therapist and Rhianna discussed updates, medication changes, and best care practices to promote mood stability.
--- NOTE | 2019-01-08 09:03 | BH.SGPN.GN ---
Behaviors/Verbalizations/Mental Status: []Client alert and oriented, casual dress, hygiene tended to. Eye contact fair. Motor activity appropriate. Speech within normal limits. Affect constricted, depressed mood. tearful. Thoughts linear, logical, no signs of hallucinations or delusions. Reviewed client?s symptom tracker, no signs of suicidal ideation, plan, or intent as of today. Client Response/Progress/Benefit: []Pt passive participant as evidenced by pt only contributing when elicited by therapist, however did appear to listen attentively to peers. Pt stated a mental health positive as using her garden peppers to make dinner last night instead of ignoring the peppers for the third day in a row. Pt reported she often ignores tasks and responsibilities because has no motivation to do anything. Pt needed assistance from therapist to identify what skill she used to overcome lack of motivation yesterday. Pt identified she weighed the pros and cons of ignoring the vegetables and recognized the cons outweighed the pros. Pt seemed to benefit from review of cognitive triangle and importance of behavioral activation. Progress noted with pt completing task versus avoiding. Pt to continue IOP level of care to increase consistent use of healthy coping skills, prevent decompensation, and challenging distorted thought patterns. Narrative Note: []
--- NOTE | 2019-01-08 10:18 | BH.SGPN.GN ---
Behaviors/Verbalizations/Mental Status: [Client alert and oriented, casual appearance. Eye contact fair to good. Motor activity appropriate. Speech within normal limits. Affect congruent, mood euthymic, anxious. Thoughts linear, logical, no signs of hallucinations or delusions. ] Client Response/Progress/Benefit: [Pt was an active participant in group discussion, more engaged than in previous sessions. Processed quote of the day with peers. Pt indicated sometimes other?s interpretation of what we are communicating may not be what we meant. Group discussed the MH benefits to open and clear communication with supports and providers which included: decreased frustration, improved mood and happiness, clearer expectations, improved personal connections, and decreased fear. Group discussed the barriers that tend to impact clear and open communication which include: fear, apathy, distorted thoughts, misinterpretations, past negative experiences, not wanting to hurt other?s feelings and assumptions. Pt was attentive during psycho-education on communications styles (aggressive, passive, passive-aggressive, and assertive). Also provided some input on the pros and cons to each communication style, indicating that reacting on emotion can lead to aggressive communication and result in conflict. Pt stated she could connect with all the different communication styles, specifically that of passive communication. Pt seemed to benefit from increased insight on how communication impacts mental health. Pt to continue IOP level of care to increase generalization of healthy coping skills, identify and challenge distorted thoughts and prevent decompensation.] Narrative Note: []
--- NOTE | 2019-01-13 09:06 | BH.SGPN.GN ---
Behaviors/Verbalizations/Mental Status: []Client alert and oriented, neatly dressed and groomed. Eye contact good. Motor activity appropriate. Speech within normal limits. Affect congruent, mood euthymic. Thoughts linear, logical, no signs of hallucinations or delusions. Reviewed client?s symptom tracker, no risk for suicidal ideation, plan, or intent as of 01/13/19. Client Response/Progress/Benefit: []Client responded well to session, positive contributions. Client reports feeling ?accomplished? today. Client shared that she has been active in following through with her therapy treatment goals. Client admitted that she had not been consistent with implementing coping skills and she is trying to change this. Client stated she has been walking, listening to positive TedTalks, and working on small goals. Client reported it has been helpful for her to ?break things into small steps.? Client shared another positive is that she spent yesterday with her grandsons and they had fun together. Client?s current stressor is that she has hives and it is causing her to feel restless. The group encouraged client to seek medical attention and client was receptive. Appeared to benefit from connecting with peers and reflecting on her application of coping skills. Will continue IOP to improve mood stability and promote consistent use of coping skills.?
--- NOTE | 2019-01-13 10:14 | BH.SGPN.GN ---
Behaviors/Verbalizations/Mental Status: []Client alert and oriented, casually dressed, appropriate grooming. Eye contact good. Motor activity WNL. Speech appropriate rate/tone. Affect congruent, mood euthymic, anxious. Thoughts linear, logical, no signs of hallucinations or delusions. Client Response/Progress/Benefit: []Pt responded well to session, provided input, supportive feedback, and listened attentively to peers. Pt appeared to connect with the quote, providing insight that ?when ruminating she is not focused on the present. Pt participated in group discussion regarding mental health benefits of change. Pt identified three small personal changes to improve mental health as: exercising, accepting self, and finding engagement in life. Identified current barriers keeping pt from making those changes to be fear of failure, lack of motivation, decreased self-confidence, isolation, low self-esteem, and not wanting her changes to hurt others. Pt appeared to benefit from gaining awareness of personal changes that would improve mental health and the barriers keeping client stuck. Progress noted in client level of insight regarding current barriers impacting mental health change and ability to make personal connections with topic at hand. Continue IOP to further increase consistent application of healthy coping skills, challenge distorted thoughts, and prevent decompensation. Narrative Note: []
--- NOTE | 2019-01-13 11:17 | BH.SGPN.GN ---
Behaviors/Verbalizations/Mental Status: []Client alert and oriented, casual dress, hygiene tended to. Eye contact good. Motor activity appropriate. Speech within normal limits. Affect congruent, mood euthymic and positive. Thoughts linear, logical, no signs of hallucinations or delusions. Client Response/Progress/Benefit: []Pt was an semi-active participant, did well to participate in group activity and provided insight and input to discussion at times. Worked with group members to identify connections between activity and strategies for overcoming barriers to making changes. Identified a specific change she would like to make for her mental health, barriers to making that change, and a SMART goal to reach that change. Shared she wants to focus on being more active. Pt stated her SMART goal is to walk 1-2 miles five to seven days per week. Pt reported she is motivated to make this change because it will make her feel healthier and get her out of the house. Benefited from group as she was able to identify strategies to overcome barriers to change and create a plan for implementing one small change promoting personal growth. Pt to continue IOP level of care to improve consistent application of healthy coping skills, challenge distorted thoughts and prevent decompensation. Narrative Note: []
--- NOTE | 2019-01-13 13:38 | BH.MTP_ITS ---
Treatment Plan Review Date of Admission:: 12/23/18 Date of Treatment Plan Review:: 01/13/19 Admitting Diagnoses:: Major depressive disorder recurrent severe without psychosis F33.2, rule out dysthymia, generalized anxiety disorder Current Diagnoses:: Major depressive disorder recurrent severe without psychosis F33.2, rule out dysthymia, generalized anxiety disorder Patient's Response to Treatment:: Client has responded well to treatment so far, as shown by her overall consistent attendance, connection with peers, and report of increased self-awareness. Client has been attentive and engaged during group sessions often taking notes, and occasionally contributing to discussions. In individual sessions, client is receptive to learning new coping skills and challenging distortions. However, client self-reports lack of follow through with homework and application of coping skills outside of IOP. Client acknowledges ?if I use them, they work? but she continues to struggle with consistency. Client has been trying to be more active by walking which has been helping improve client?s mood. Client is also working on setting small goals to promote behavioral activation. Client reports belief her symptoms are reducing, especially her anxiety. Client was unable to complete the DSM-5 cross cutting symptom measure at time of review. Therefore, client's scores cannot be evaluated for progress at this time. Status of Current Problems and Symptoms: Client is currently reporting improvements in her mood and motivation. However, prior to today?s session, client had been struggling with ongoing depressive symptoms, isolation, low energy, difficulty concentrating, and apathy. Client also reports ongoing issues with self-depreciation, disqualifying positives, and inconsistent application of coping skills. Client states even though her mood has improved, she continues to feel lost about what she is passionate about in life. Lastly, client?s marriage and being a caregiver for her mother are ongoing stressors for client. Problem #1 Problem Name:: Pt. will decrease depressive symptoms, isolation, and negative thinking Status of Goals:: Objective 1: partially complete. Client has learned about distortions and can identify personal patterns of negative thinking. However, client continues to struggle with actively challenging thoughts. Client reports she often tries to ignore them, but ?they don?t go away.? Objective 2: partially complete. Unable to evaluate DSM-5 scores. Client can identify healthy coping skills and reports using opposite action, small goals, and exercise. Client continues to struggle with consistent application of coping skills. Team Recommendations:: Client is recommended to continue working on this treat ment goal as she continues to present with moderate symptoms of depression, low energy, and negative thinking. Client has made strides to reduce isolation and has been responding well to setting small goals. Client has been encouraged to practice thought challenging on a regular basis and her distortions often act as a barrier to progress. It is also recommended that client follow up with outpatient counseling post IOP discharge. Problem #2 Problem Name:: Pt. will reduce ruminations and anxiety to improve emotional regulation Status of Goals:: Objective 1: partially complete- unable to evaluate DSM-5 scores. Client can identify anxiety triggers including feeling burnout and setting boundaries. Client also reports practicing more assertive communication with her family. Additionally, client uses walking and Tedtalks to help client reduce anxiety. Objective 2: partially complete. Client reports awareness of distortions, however, she continues to struggle with actively challenging negative thoughts on her own. Team Recommendations:: Client is recommended to continue working on this goal as she can improve her emotional regulation skills in order to manage daily stressors more effectively. Client has made strides in implementing mindfulness strategies and communicating more assertively. However, client continues to struggle with managing her negative thoughts that lead to feeling overwhelmed. Client is also recommended to follow up with her outpatient counselor post IOP discharge. Client had also been given information for a care-cardiac cath lab manager support group.
--- NOTE | 2019-01-13 14:12 | BH.MDN_ITS ---
Multi-Disciplinary Note - Note 60-min Individual Time Started:: 12:22 Date: 01/13/19 Purpose of session/treatment goals addressed:: The purpose of this session was to address current stressors, symptoms, and gains. Another goal was to discuss maintenance strategies and plan of care. Other topics included: goal setting and decision making. Eye Contact:: Good Motor Activity:: Appropriate Appearance:: Neat Speech:: Rambling Mood:: Euthymic, Anxious Affect:: Congruent Thoughts:: Other - thought blocking, No evidence of hallucinations/delusions noted Staff Interventions:: Therapist used active listening and open-ended questions to explore client's current symptoms, stressors, and gains. Therapist used strengths perspective to empower client and highlight areas of growth. Therapist helped client identify strategies that can promote maintenance and ongoing utilization of healthy coping skills. Therapist used cost-benefit analysis to help client identify pros and cons of staying in her marriage. Therapist gave client homework to promote maintenance. Client Response:: Client responded well to session, open to meeting with therapist. Client entered session smiling and shared I've done a lot since last session. Client reported she watched the TedTalk this therapist suggested, and client shared it helped motivate client to change. Client reported she has been walking while listening to TedTalks, getting things done around her house, using assertive communication, and writing in a brain dump journal. Client acknowledges how doing these things improves client's mood and thinking. Client shared she handled a situation with her daughter and granddaughter well and it helped client realize how much her emotional regulation impacts others. Client shared she wants to continue working on her current skills to promote maintenance. Client reported her current stressor is she has been thinking more about leaving her . Client stated she has felt this way for a long time and client shared she has gained more insight. Client reports she is not ready to make a choice yet, but she has been weighing the pros and cons. Client and therapist further processed this and discussed different things to consider when making a big decision. Client recognized that it would be best for her to focus on one day at a time rather than ruminate too far into the future. Risks/Concerns:: Client denies any suicidal ideations, plan, or intent as of 01/13/19. Progress Toward Goals/Plan:: Client has shown significant strides towards treatment goals since last session. Client reported she realizes the importance of follow through and client states ?I?ve been doing a lot.? Client reports an improved mood and more motivation. Client states she has been more assertive which has benefited her relationships. Client continues to struggle with self- depreciation, difficulty concentrating, and difficulty making decisions. Client also recognizes that she has a history of self-reported inconsistency and client would like to continue working on maintenance. Client and therapist discussed plan of care and recognize the benefit of client?s ongoing participation in IOP to further reduce symptoms and promote maintenance. Time Stopped:: 13:20
--- NOTE | 2019-01-15 09:00 | BH.SGPN.GN ---
Behaviors/Verbalizations/Mental Status: [] Eye contact is good. Motor activity is appropriate. Appearance is casual. Speech is Appropriate. Mood is flat. Affect is depressed. Thoughts are linear and logical. No evidence of psychosis. Reviewed daily check in sheet and no reports of suicidal ideations or intent. Client Response/Progress/Benefit: [] Pt participated at time during group discussions. Shared with the group that she is doing better. Clairified this stating that she has noted increased motivation and accomplishing more tasks. She had also increased self-care strategies like walking. Overall mood improvement and progress noted per pt. Noted some medical issues recently which have caused stress. Benefited from group support, encouragement, and feedback. Will continue in IOP to maintain gains, prevent decompensation, and and stablize mood. Narrative Note: []
--- NOTE | 2019-01-15 09:41 | BH.NOTE ---
BH: Inpatient Note - Notes Behavioral Health Inpatient Note: Client wishes to discuss an itchy skin issues that she has had for approximately 1 week. She has raised, red, itchy patches all over her body, including on her scalp. She denies new or changed medications, perfumes, lotions, soaps, detergents, and denies any recent exposure to chemicals or known environmental allergens. She notes that periods of high anxiety seem to make it worse and trigger it, but it has been there constantly. She has not tried anything OTC, including Benadryl or topicals. This LEARNING COACH recommended that client contact her PCP's office for an exam and appropriate treatment. There is concern for client follow-through. Will continue to monitor. Gris Galdamez, MSN, RN
--- NOTE | 2019-01-15 10:15 | BH.SGPN.GN ---
Behaviors/Verbalizations/Mental Status: []Client alert and oriented, neatly dressed and groomed. Eye contact good. Motor activity appropriate. Speech within normal limits. Affect constricted, mood anxious. Thoughts linear, logical, no signs of hallucinations or delusions. Client Response/Progress/Benefit: []Client was an active participant in group discussions. Attentive and provided insight during processing of quote of the day. Client reported it is ?really hard? to choose a different path, but positive changes can have a ripple effect. The group and client worked together to identify barriers that keep one from choosing a new and healthier path to mental wellness which included; unhealthy habits, self-doubt, feeling overwhelmed, ruminations, substances, negative thinking, and ?choosing misery.? Attentive during psychoeducation on the chapters of life. Client was engaged in discussion, providing insight to distinguishing factors in each chapter. Reports that group topic reminded client that it is important to take responsibility for ways in which she renae. Benefited from increased awareness and education on barriers to choosing new wellness paths and chapters of life. Progress noted in client?s improved mood and self-report of increased motivation. Will continue IOP to promote mood stability and improve daily functioning.
--- NOTE | 2019-01-15 11:15 | BH.SGPN.GN ---
Behaviors/Verbalizations/Mental Status: []Client alert and oriented, casually dressed and groomed. Eye contact good. Motor activity appropriate. Speech within normal limits. Affect congruent, mood anxious. Thoughts linear, logical, no signs of hallucinations or delusions. Client Response/Progress/Benefit: []Client was an active participant in group discussion, contributing to discussion and listened attentively to others. Completed worksheet and willing to share with the group. Client reported belief she is between chapters 3 and 4? as client shared she still falls in the hole sometimes but has gained awareness of what needs to change and has implemented on several occasions positive skills. Client shared to get to the next chapter she wants be focus on her positives to help build confidence. Client identified things she is currently doing that will help her get to the next chapter including self-awareness and applying healthy skills learned. Stated she recognizes that ignoring her problems may be a barrier to growth at times. Benefited from group by identifying thoughts and behaviors that have kept her stuck and developing plan to promote progress. Will continue in IOP to increase consistent utilization of healthy coping, promote gains, and prevent decompensation. Narrative Note: []
--- NOTE | 2019-01-20 09:05 | BH.SGPN.GN ---
Behaviors/Verbalizations/Mental Status: []Client alert and oriented, neatly dressed and groomed. Eye contact good. Motor activity slowed-reported fatigue from medication. Speech within normal limits. Affect flat, mood dysthymic. Thoughts linear, logical, no signs of hallucinations or delusions. Reviewed client?s symptom tracker, no risk for suicidal ideation, plan, or intent as of 01/20/19. Client Response/Progress/Benefit: []Client responded well to session, quiet, but participating when prompted. Client reports feeling ?numb? today as client reports the medication she is taking for her rash is making her fatigued. Client shared she is both excited and anxious about her upcoming vacation. Client stated she recognizes that once she is on vacation, she will have a good time, but preparing for it is stressful. Client reported she plans to keep up her self-care routine while on vacation. Client stated she and her are going with another couple, and client shared the woman going will walk in the mornings with client. Client receptive to gentle challenging from therapist on the importance of coping skill maintenance. Appeared to benefit from reflecting on strategies to promote maintenance. Will be on vacation next week, but client will return to [facility] after vacation to continue working towards mental health goals.?
--- NOTE | 2019-01-20 10:15 | BH.SGPN.GN ---
Behaviors/Verbalizations/Mental Status: []Client alert and oriented, casually dressed and groomed. Eye contact good. Motor activity appropriate. Speech within normal limits. Affect congruent, mood euthymic. Thoughts linear, logical, no signs of hallucinations or delusions. Client Response/Progress/Benefit: []Pt engaged in session AEB pt providing input at times discussion and listened attentively to peers. When processing activity pt connected with peers that it can be challenging to understand others perspective because often see a situation from own lens. Pt engaged in discussion about the impact perspective can have on mental health. Pt agreed her perspective can either help her move forward in life or keep her stuck. Pt seemed to benefit from increased awareness of impact perspective has on mental health. Progress noted with pt engaging in session, appearing more engaged, and improved mood. Pt to continue IOP level of care to maintain gains, continue to challenge distorted thought patterns, and prevent decompensation. Narrative Note: []
--- NOTE | 2019-01-20 11:20 | BH.SGPN.GN ---
Behaviors/Verbalizations/Mental Status: [Client alert and oriented, casually dressed and groomed. Eye contact good. Motor activity appropriate. Speech within normal limits. Affect constricted, mood depressed, anxious. Thoughts linear, logical, no signs of hallucinations or delusions. ] Client Response/Progress/Benefit: [Client receptive of session, mostly attentive and engaged some during small group discussion. At times appearing distracted by thought and remaining mostly passive discussion. Attentive as group discussed the mental health benefits of recognizing strengths which included; improved self-esteem, better relationships, increased hope, decreased anxiety, and willingness to ask for help. Group identified the barriers that have prevented them from acknowledging their strengths and successes. These barriers included; negative thoughts, feeling like a burden, fear of being judged, and past experiences. Group identified strategies to overcome barriers that prevent them from seeing strengths. Pt appeared more engaged during this portion of discussion. These strategies included; keeping track of ?wins?, challenging negative thoughts, using affirmations, and reaching out to supports to challenge perspective when needed. Client was able to identify personal strengths with some assistance from therapist and peers. Strengths included; being a good caregiver, willingness to seek help, and ability to listen. Appeared to benefit from recognizing personal strengths and identifying strategies to overcome barriers. Will continue IOP tx to improve mood stability, further increase consistency of healthy coping skill application, improve anxiety management, and prevent decompensation.] Narrative Note: []
--- NOTE | 2019-01-21 10:08 | BH.SGPN.GN ---
Behaviors/Verbalizations/Mental Status: []Client alert and oriented, neatly dressed and groomed. Eye contact fair. Motor activity slowed. Speech within normal limits. Affect flat, mood dysthymic. Thoughts linear, logical, no signs of hallucinations or delusions. Client Response/Progress/Benefit: []Client responded well to session, attentive and taking notes throughout. Attentive during discussion of the quote. Listened during the discussion of things that can keep people feeling trapped or stuck in life including; isolation, lack of trust, substance use, focusing on negatives, lack of awareness, denial, and lack of self-worth. Group discussed the connection between thoughts, emotions, and behaviors as well as how negative thinking can keep a person stuck. Client attentive during psychoeducation on maintenance cycles. Client able to identify negative thoughts that have reinforced depression and kept client feeling trapped. Client shared her negative thought which was ?even though I try to get better, I?ll always be worthless.? Client able to recognize this thought reinforces depression and lack of motivation. Appeared to benefit from gaining awareness of how negative thoughts reinforce mental health symptoms and keep people stuck. Client has shown strides towards improving her mental wellness, but she currently reports increased negative thoughts. Will continue IOP tx to reduce depression and negative thoughts.
--- NOTE | 2019-01-21 11:10 | BH.SGPN.GN ---
Behaviors/Verbalizations/Mental Status: []Client alert and oriented, neatly dressed and groomed. Eye contact good. Motor activity appropriate. Speech within normal limits. Affect constricted, mood depressed. Thoughts linear, logical, no signs of hallucinations or delusions. Client Response/Progress/Benefit: []Client responded well to session, contributing to discussion and listening attentively to others. Client appeared to connect with maintenance cycles and recognized how negative thinking can keep a person stuck. Client identified a negative thought that has kept her stuck. Client?s thought was ?even though I try to get better, I'll always be worthless.? Client able to connect how this thought maintains depressive cycle. Client able to reframe the thought to ?There are many positive qualities I have that makes me a worthy person and I have several people in my life that love me.? Client shared this thought would improve her mental health because it would make her see herself in a more positive lens. Client appeared to benefit from practicing challenging negative thinking. Client to continue IOP to prevent decompensation. Narrative Note: []
--- NOTE | 2019-01-21 12:22 | BH.NOTE ---
BH: Inpatient Note - Notes Behavioral Health Inpatient Note: Per T.O. from Dr. Henry the follow prescription refill was called into [facility] pharmacy in [place], [place], at the request of the client: paroxetine (Paxil) 30mg PO daily, #30, no refills Voicemail left at pharmacy at 1222. Gris Galdamez, MSN, RN
--- NOTE | 2019-01-21 14:34 | BH.MDN ---
Multi-Disciplinary Note - Note 45-min Individual Time Started:: 09:26 Date: 01/21/19 Purpose of session/treatment goals addressed:: The purpose of this session was to address current stressors, symptoms, and distortions reinforcing depression. Another goal was to address strategies to prevent pitfalls. Other topics included: thought challenging and self-sabotage. Eye Contact:: Good Motor Activity:: Slowed Appearance:: Neat Speech:: Other - slowed Mood:: Dysthymic Affect:: Flat, Other - tearful Thoughts:: Other - thought blocking, No evidence of hallucinations/delusions noted Staff Interventions:: Therapist used active listening and open-ended questions to explore client's current symptoms, stressors, and distorted thoughts. Therapist discussed vulnerability factors, including physical health problems, that could trigger increased depression. Therapist used cognitive restructuring to help client identify and combat distortions reinforcing hopelessness. Therapist reviewed coping skills to prevent decompensation. Therapist gave client homework to write out two negative thoughts and challenge them. Client Response:: Client responded somewhat well to session, appeared tired and reported she feels groggy from her OTC medication for her hives. Client stated she is looking forward to vacation, but because she has been feeling so tired, she has been procrastinating with preparing for vacation. Client became tearful and shared she has been having more negative thoughts lately. Client able to recognize that her fatigue and inability to exercise due to her hives has made client more vulnerable to depressive symptoms and triggers. Client shared she has thoughts of I try and try and I just don't get anywhere. Client reported when she thinks this way, she becomes hopeless and less motivated to use healthy coping skills. Receptive to discussion of pitfalls and choices client has at this difficult roadblock. Client able to recognize that if she does not challenge these distortions she will continue to fall back into old, unhelpful patterns of coping. Client reported she plans to get back into walking and journaling and was receptive to practicing this on vacation. Willing to write out and challenge two hopeless thoughts. Risks/Concerns:: Client denies any suicidal ideations, plan, or intent as of 01/21/19. Future oriented and reports being excited about vacation. Progress Toward Goals/Plan:: Prior to today?s session, client had been demonstrating progress towards treatment goals as she reported using coping skills and having increased follow though. Client presents today with increased negative thinking and depressive symptoms. Client recognizes she increase in symptoms may be due to the medication she is on for her hives and it makes her fatigued and lack energy. Client acknowledges if she does not challenge her distortions, she will continue to fall back into old patterns of behavior. Client willing to practice thought challenging and behavioral activation for homework. Client is on vacation next week and will not be in IOP. Will return to IOP tx the week of February 01, after vacation. Time Stopped:: 10:04
== END 2019-01-30 23:59 ==
LOC: BHIOP 09:00
PROVIDERS: Referring Provider Psychiatry & Neurology Psychiatry; Visit Provider Psychiatry & Neurology Psychiatry
DX: F33.2 Major depressive disorder, recurrent severe without psychotic features (principal); F41.1 Generalized anxiety disorder
CPT/HCPCS: H0035; 90834; 90837; 90853

== ENCOUNTER 2019-02-04 09:00 | Outpatient (RCR) | payer BC, SELFPAY ==
[2014-04-03 13:51] VITALS: BMI 24.4
--- NOTE | 2019-01-08 11:20 | BH.SGPN.GN ---
Behaviors/Verbalizations/Mental Status: []Client alert and oriented, neatly dressed and groomed. Eye contact good. Motor activity appropriate. Speech within normal limits. Affect flat, mood dysthymic. Thoughts linear, logical, no signs of hallucinations or delusions. Client Response/Progress/Benefit: []Client responded well to session, attentive, engaged throughout. Attentive during ongoing psychoeducation on the different communication styles. Client able to gain insight into her communication style and client reported she is passive and passive-aggressive. Client shared she has been trying to be more assertive, and she can be assertive via texting, but not in person. Client shared when she is passive ?I don?t get anywhere.? Client able to recognize that being passive and passive-aggressive has negatively impacted her mental health. Participated during group activity. Able to use the activity to reflect on ways to improve communication. Attentive during psychoeducation on D.E.A.R M.A.N and reported she wants to work on describing her needs more clearly when communicating. Appeared to benefit from increasing self-awareness and practicing in the moment coping skills. Client will continue tx as she continues to struggle with mood instability and consistently applying coping skills.
--- NOTE | 2019-02-04 09:00 | BH.SGPN.GN ---
Behaviors/Verbalizations/Mental Status: [] Eye contact is good. Motor activity is appropriate. Appearance is casual. Speech is Appropriate. Mood is anxious. Affect is congruent. Thoughts are linear and logical. No evidence of psychosis. Reviewed daily check in sheet and no reports of suicidal ideations or intent. Client Response/Progress/Benefit: [] Pt spoke only when prompted. Daily symptom tracker indicates 4/5 for agitation and hopelessness. Pt reports that she went out of town for a couple weeks. Discussed several mental health wins. Gave examples of overwhelming anxiety, living in the present, and notes she actually enjoyed the vacation. She did not isolate during the vacation and actually engaged socially. Notes upon return an increase in anxiety. Had a panic attacks which she has not had in some time. Fearful of regression. Trying to maintain skills however it has been difficulty. Discussed stressors that she has encountered since returning home. Recent regression. Benefited from group support, encouragement, and feedback. Will continue in IOP to prevent decompensation, stabilize anxiety, consistently use skills. Narrative Note: []
--- NOTE | 2019-02-04 10:10 | BH.SGPN.GN ---
Behaviors/Verbalizations/Mental Status: []Client alert and oriented, casually dressed and groomed. Eye contact good. Motor activity appropriate. Speech within normal limits. Affect constricted, mood dysthymic. Thoughts linear, logical, no signs of hallucinations or delusions. Client Response/Progress/Benefit: []Client active participant as shown by client?s contribution to discussion and helpful insight. Client agreed with peers that self-care is important because challenging to care for others if don't care for self. Client participated in the discussion of the common myths about self-care including self-care is selfish, self indulgent, pampering self, and always fun. Client gave examples of self-care activities such as taking medications, exercising and eating healthy. Client stated self-care is the hardest to do when you feel the worst. Client engaged in activity and able to connect how sometimes to make self-care a priority, a person must set boundaries in other areas of their lives. Client seemed to benefit from increased awareness of the importance of self-care. Client showing progress as shown by her report of utilization of coping skills and ability to challenge distorted thoughts. Will continue tx to maintain gains, continue to use healthy coping skills, and prevent decompensation. Narrative Note: []
--- NOTE | 2019-02-04 11:15 | BH.SGPN.GN ---
Behaviors/Verbalizations/Mental Status: [Client alert and oriented, neatly dressed and groomed. Eye contact good. Motor activity appropriate. Speech within normal limits. Affect constricted, mood dysthymic and anxious. Thoughts linear, logical, no signs of hallucinations or delusions. ] Client Response/Progress/Benefit: [Pt receptive of session, actively listening, though provided limited input to discussion. Willing to complete worksheet activity. Listened as the group further processed the activity and connected with the importance of self-care in maintaining mental health and preventing burn-out. Pt completed self-assessment activity on the different areas of self-care, noting she feels she is struggling in several areas, specifically emotional and psychological self-care. Pt reports connecting with discussion on the mental health effects of not making self-care a priority and provided personal example of impact caring for her mother has had on pt ability to make self-care a priority for herself. Pt set a goal to improve in the area of psychological self-care. Pt?s goal is to spend more time exploring new personal interests because she does not know what she enjoys any longer. Pt appeared to benefit from increasing awareness of how she can improve her self-care balance. Pt progress continues to be limited by variable application of coping skills outside of tx environment. Recommended continued IOP to continue to promote ongoing skill application, increase emotion regulation, and decrease depressive sx.] Narrative Note: []
--- NOTE | 2019-02-05 09:00 | BH.SGPN.GN ---
Behaviors/Verbalizations/Mental Status: [] Eye contact is good. Motor activity is appropriate. Appearance is casual. Speech is Appropriate. Mood is anxious. Affect is congruent. Thoughts are linear and logical. No evidence of psychosis. Reviewed daily check in sheet and no reports of suicidal ideations or intent. Client Response/Progress/Benefit: [] Pt participated when prompted. Daily symptom tracker indicates 4/5 for anxiety, panic, agitation, and hopelessness. Pt notes that she is having a heard time. She struggles with verbalizing triggers or symptoms, however is visibly anxious. With increase in anxiety she has noticed exacerbation of hives and itching. Appears that her house is very chaotic related to family staying there. Group provided support, encouragement, and feedback which was beneficial. No progress noted per pt. Will continue in IOP to prevent decompensation, encourage consistent skills use, and to stabilize anxiety. Narrative Note: []
--- NOTE | 2019-02-05 10:16 | BH.SGPN.GN ---
Behaviors/Verbalizations/Mental Status: [Client alert and oriented, casually dressed and appropriately groomed. Eye contact good. Motor activity appropriate. Speech within normal limits. Affect constricted, mood fatigued, dysthymic. Thoughts linear, logical, no signs of hallucinations or delusions] Client Response/Progress/Benefit: [Pt remained engaged during discussion AEB providing input though mostly actively listening, willing to complete worksheet activity. Pt connected with the group topic of Crisis and did well to work with group to define crisis. Pt identified examples of potential crisis to include family issues. Connected with discussion on how small setbacks can develop into a crisis if coping skills are unhealthy. Pt shared that her common crisis response is avoiding which has increased depressive sx as a result. Group identified warning signs for crisis which included; increased sleep, irritability, decreased appetite, and suicidal thoughts. Pt completed the personal warning signs worksheet and identified crisis warning signs to include; decreased focus and concentration, negative thoughts, isolating. Benefited from group by increasing awareness of crisis and personal warning signs. Progress variable as pt is able to make personal connections to materials discussed, though struggles with applying skills learned outside tx environment. Continue IOP to promote healthy change behaviors, improve emotion regulation skills, as well as prevent decompensation.?] Narrative Note: []
--- NOTE | 2019-02-05 12:57 | BH.MDN ---
Multi-Disciplinary Note - Note 30-min Individual Time Started:: 11:32 Date: 02/05/19 Purpose of session/treatment goals addressed:: The purpose of this session was to address current stressors, symptoms, and distortions reinforcing anxiety. Another goal was to create a weekend self-care and anxiety management plan. Other topics included: thought challenging and warning signs. Eye Contact:: Good Motor Activity:: Appropriate Appearance:: Neat, Casual Speech:: Appropriate Mood:: Anxious, Dysthymic Affect:: Flat Thoughts:: Linear, Logical, No evidence of hallucinations/delusions noted Client Response:: Client receptive of meeting with this therapist as regular therapist is out. Client openly discussed throughout. She indicated that since returning from vacation Friday, she has seen an increase in anxiety related symptoms. Client reports ?it?s just hard going from doing so bad to doing so well, to going on vacation, and now you know?not doing so well again?. She expressed feeling as though she has regressed in her ability to make progress. Client initially struggled to challenge these thoughts, indicating ?I just feel so inadequate?; however, upon further reflection and with assistance was able to do so. Client did well to recognize that her thoughts of ?I should be working? and ?I should cook more often? as distortions and worked with therapist to reframe. She identified that she would not be able to manage a 40 hour/week job and provide fulltime care for her mother. She did well to identify potential triggers for increased anxiety over the past few days. Client identified that returning to the responsibilities of daily life and having limited time to readjust before her daughter came to stay may have trigger some anxiety, as well as ongoing stressors related to caring for her mother. Client able to recognize that she has not ?started over? and did well to identify skills she could use this weekend if feeling anxious. Shared her warning signs include lack of motivation, racing thoughts, and isolation. Client identified taking 5-10 minutes to do small activities as a way to combat lack of motivation, reminding herself ?things aren?t that bad, look at where I?ve made progress? and ?I have a choice to try and enjoy this moment or I can regret not spending time with my granddaughter?, as well as balancing alone time to reset herself with time with her family at the local [employer] this weekend. Risks/Concerns:: Client denies active suicidal ideations, plan, or intent as of 02/05/19. Future oriented and reports being excited about her daughter visiting as well as expressed plans to go to a [employer] this weekend. Progress Toward Goals/Plan:: Some regression as pt reports increased anxiety since returning home from vacation earlier this week. She noted feeling her anxiety related symptoms are the worst they have been in a few weeks and initially struggled with self-deprecating talk and use of distortions. Pt did well to challenge distortions in session and problem solve strategies for easing anxiety in the moment. She appears to have difficulties in consistently applying these skills outside of the treatment environment. Client willing to practice thought challenging and small goas of doing something that is not sitting for 10-15 minutes when experiencing low motivation. Continue IOP tx to further promote application of thought challenging and behavioral activation skills, increase consistency of skill application, and prevent decompensation. Time Stopped:: 12:07
--- NOTE | 2019-02-11 08:11 | BH.COMM ---
Communication Note - Communication with Client Communication Note: Client called and canceled her scheduled IOP session today due to illness. Client reports plan to attend tomorrow, 02/12/19.
--- NOTE | 2019-02-12 09:06 | BH.SGPN.GN ---
Behaviors/Verbalizations/Mental Status: [Client alert and oriented, casual appearance. Eye contact good. Motor activity appropriate. Speech within normal limits. Affect congruent, mood depressed, anxious. Displaying signs of thought blocking, no signs of hallucinations or delusions. Reviewed client?s symptom tracker, no risk for suicidal ideation, plan, or intent as of 02/12/19.] Client Response/Progress/Benefit: [Pt responded well to session, providing some input though appearing distracted by her own thoughts throughout. Pt reports feeling ?detached? today and indicated that increased time spent caretaking for her mother may have contributed to increased feelings of burnout. Indicated isolating on previous date rather than coming to group, so the fact that she was able to get to IOP on this date was described as a mental health win. Pt reports ongoing difficulties in applying the skills learned and remembering to actively challenge her thoughts, as she notes ?It?s hard to take on the responsibility of doing those things?when you look at pros and cons then you have to be responsible for them?. Struggled to identify an additional mental health win though was able to identify that using her supports and spending time with her daughter and family may improve her mood. Ambivalent following through with doing so, which continues to be a barrier to pt progress overall. Will continue IOP tx to continue to promote healthy change behaviors, prevent decompensation, and reduce the intensity of symptoms.] Narrative Note: []
--- NOTE | 2019-02-12 10:10 | BH.SGPN.GN ---
Behaviors/Verbalizations/Mental Status: []Client alert and oriented, neatly dressed and groomed. Eye contact good. Motor activity appropriate. Speech within normal limits. Affect flat, mood dysthymic. Thoughts linear, logical, no signs of hallucinations or delusions. Client Response/Progress/Benefit: []Client listened attentively to peers and provided input at times during session. Client appeared to connect with peers? comments about the impact perception of failure can have on mental health. Client reported failure to her is not succeeding, but she agreed that one is able to reframe the definition of failure. Client stated she could connect with thoughts that she sometimes views herself as a failure which only reinforces depression and anxiety. Group identified factors that contribute to fear of failure such as: fear of the future, fear of not being perfect, fear of the unknown, and fear of going backward. Client reported fear of failure can keep people from positive opportunities and improved mental health. Client seemed to benefit from increased awareness of how fear of failure can impact mental health. Client to continue IOP level of care to improve generalization of healthy coping skills, continue to identify and challenge distorted thoughts, and prevent decompensation.
--- NOTE | 2019-02-12 11:15 | BH.SGPN.GN ---
Behaviors/Verbalizations/Mental Status: []Client alert and oriented, casually dressed and groomed. Eye contact good. Motor activity appropriate. Speech within normal limits. Affect constricted, depressed mood. Thoughts linear, logical, no signs of hallucinations or delusions. Client Response/Progress/Benefit: []Client engaged in session as evidenced by pt providing input throughout discussion and listening attentively to others. Client completed fear of failure worksheet and shared with group. Client shared fear of failure is keeping client from improving life. Client identified barriers to overcoming fear of failure which included: perfectionism, not following through with goals, no confidence, feeling overwhelmed, predicting the future, difficulty asking for help, self-sabotage, and isolation. Client identified things that he can do to overcome fear of failure such as: reminding self of what she is doing to improve herself, recognize distorted thoughts and reframe, reach out to supports, avoid toxic people, and remind self of times she has helped others. Benefited from identifying the impact that fear of failure has had on her life and developing strategies to overcome fear of failure. Progress seems to be stagnant AEB pt reporting setbacks in progress, which could be attributed to pt's lack of consistent follow through with healthy skills. Will continue IOP to prevent decompensation, identify and challenge distorted thoughts and improve consistent application of coping skills. Narrative Note: []
--- NOTE | 2019-02-12 13:09 | BH.MDN_ITS ---
Multi-Disciplinary Note - Note 45-min Individual Time Started:: 12:16 Date: 02/12/19 Purpose of session/treatment goals addressed:: The purpose of this session was to address current stressors, symptoms, and distortions reinforcing depression. Another goal was to address strategies to prevent pitfalls. Other topics included: thought challenging and self-sabotage. Eye Contact:: Good Motor Activity:: Slowed Appearance:: Neat Speech:: Soft Mood:: Dysthymic Affect:: Congruent - tearful Thoughts:: Linear, Logical, No evidence of hallucinations/delusions noted Staff Interventions:: Therapist used active listening and open-ended questions to explore client's current symptoms, stressors, and distorted thoughts. Therapist discussed vulnerability factors, including recently returning from vacation, that could trigger increased depression and low motivation. Therapist used cognitive restructuring to help client identify and combat distortions reinforcing hopelessness and apathy. Therapist reviewed coping skills to prevent decompensation. Client Response:: Client responded well to session, open to meeting with therapist. Client shared since she returned from vacation her motivation has decreased. Client stated she had been walking and listening to TedTalks regularly prior to vacation, but since returning, client has not walked once. Client reported she has been feeling down and having more negative thoughts lately. Client reported she has not been using behavioral activation or thought challenging. Client recognizes that she knows the coping skills, but if she does not use them, she stays stuck. Client and therapist discussed ways to improve accountability and follow through. Client receptive to ideas which included fixing her Fitbit, walking with her granddaughter, and calling a friend while she walks. Client also receptive to the idea of training to walk a 5k with her granddaughter. Client stated, she would really like that. Client able to challenge negative, self-deprecating talk during session that could prevent client from attempting these goals. Risks/Concerns:: Client denies any suicidal ideations, plan, or intent as of 02/12/19. Progress Toward Goals/Plan:: Client continues to show some strides towards progress, but she reports inability to maintain mood stability for long periods of time. Client reports having a hard time consistently applying coping skills, especially when depressed, which may be contributing to her difficulty achieving prolonged progress. Client shared ?I know if I use them they work, but I can?t get myself to do anything.? Client recognizes she has received the maximum benefit of the IOP and will discharge next week to return to individual counseling. Client can benefit from one more IOP session to establish sheri ntenance strategies and aftercare. Time Stopped:: 12:56
--- NOTE | 2019-02-17 09:10 | BH.SGPN.GN ---
Behaviors/Verbalizations/Mental Status: [] Eye contact is good. Motor activity is appropriate. Appearance is casual. Speech is Appropriate. Mood is euthymic. Affect is congruent. Thoughts are linear and logical. No evidence of psychosis. Reviewed daily check in sheet and no reports of suicidal ideations or intent. Client Response/Progress/Benefit: [] Pt participated at times during the group discussion. States I'm doing pretty good. Mentioned that today is her last day in [facility]. She notes overall progress in the program reporting that she learned the most from groups on coping skills, decision-making, and fear of failure. She reports that current stressor is related to care for her mother with Alzheimer. She is beginning to come to terms and accept that [facility] placement may be best option. She is not beating herself up and does not feel guilty about this decision. Some grief related to recent losses. Benefited from group support and feedback. Today will be pt's last day in [facility]. Narrative Note: []
--- NOTE | 2019-02-17 10:43 | BH.IGGP_ITS ---
Aftercare Plan - Demographics Treatment End Date:: 02/17/19 Psychiatrist:: Lois Henry Psychiatrist Office #:: [id number] [facility] Therapist:: Antoinette Cabrera Therapist Phone #:: [phone] - Medications Home Medications: Home Medications Lorazepam [Ativan] 0.5 mg PO BID PRN PRN 12/09/18 busPIRone [Buspar] 10 mg PO TID PRN 12/09/18 traZODone [Desyrel] 50 mg PO QHS 12/09/18 Paroxetine HCl [Paxil] 30 mg PO DAILY 01/21/19 buPROPion SR [Wellbutrin Sr] 100 mg PO BID 01/21/19 - Plan Details Progress/Aftercare Plan Details:: Craig, since starting IOP you have made some great strides towards improving your mental health. You have increased self- awareness of your emotions, negative thoughts, and healthy and unhealthy coping skills. Your depression and anxiety have decreased, and you have been doing better with preventing ?shut down days.? You have worked to catch your distorted thinking patterns and self-talk and have been working to challenge and reframe these. You have been working on small goals, realistic expectations for yourself, and staying in the present. It has not always been a straight line of progress, but that is okay, because progress is not linear. You have looked into interests and have some idea of things that can bring you louise once you discharge from [facility]. You know that staying active and using healthy coping skills helps, but it is up to you to stay consistent. Craig is recommended to follow up with Rhianna Huizar at [facility] for individual counseling. Craig is also recommended to follow up with Nory Cano at [facility] for medication management. Craig can also benefit from continuing to work on reducing smoking and engaging in self-care activities. Strategies for Success:: 1. Small steps! Remember a little progress each day adds up to big results. 2. challenge negative self-talk! Healthy distractions or tell yourself to change topics. 3. Be in the moment, remember you don't have to always have the next step planned or an answer. 4. Encourage yourself to try new things and find passions. Remember things that have given you louise before: monique, cooking, walking, etc. 5. Stay active! walking and being outdoors. 6. Listen to Tedtalks and use them as a motivator when having a low day. 7. Catch yourself when being negative and actively challenge the negative thought, rather than letting it consume you. 8. Try to clean or work on projects as shown as you think of it. Ex: cleaning as soon as I notice it or texting someone when I think of them. 9. Realistic expectations of self and accomplishments. Remember goals don't have to be all or nothing. 10. Self-compassion! You are human and deserving of forgiveness and love. - Appointments Appointments/Referrals to Other Services:: 1. Follow up with Rhianna for individual counseling 2. Nory Cano in March for medication management. 3. Follow up with me on 03/05/19 at 2:00pm
--- NOTE | 2019-02-17 11:57 | BH.DS_ITS ---
Discharge Summary - Demographics Date of Admission:: 12/17/18 Discharge Date: 02/17/19 Presenting Problems at Admission:: Client is a 58-year-old female with a history of depression and anxiety. Prior to [facility] level of care, client participated in the [facility] program. At admission to [facility], client continued to endorse worthlessness, use of unhealthy coping skills, lack of self-worth, avoidance, low energy, poor concentration, anhedonia, isolative behaviors, and increased appetite. Client also reported ruminations, poor focus, poor memory, racing thoughts, and panic. 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 Client often reported feeling overwhelmed, ?scattered,? and unable to make decisions. Client had a history of self-medicating with alcohol. At admission, client?s symptoms were continuing to interfere with her social, occupational, and familial functioning. Discharge Diagnoses:: Major depressive disorder recurrent severe without psychosis F33.2, rule out dysthymia, generalized anxiety disorder Reason for Discharge:: Client has made progress towards treatment goals, reports increased ability to regulate emotions and manage depression and anxiety. Client also reports reduced passive suicidal ideations and more hope for the future. Client no longer meets criteria for [facility] level of care. - Treatment Progress During Treatment & Response: Client responded well to treatment as shown by her overall consistent attendance, connection with peers, and report of increased self-awareness. Client was attentive during group sessions often taking notes, and occasionally contributing to discussions. In individual sessions, client was receptive to learning new coping skills and challenging distortions. However, client struggled at times to see consistent progress due to self-reported variable application of coping skills and following through with homework. Client acknowledged at discharge that she can benefit from using coping skills more regularly to prevent major setbacks. Client self-identified her progress as increased self-awareness of negative thinking, feeling less alone, accomplishing more small goals, reduced anxiety, and practicing more mindfulness skills. Overall, client?s mental health symptoms decreased since admission as evidenced by her DSM-5 scores going from 53 at admission to 35 at discharge. Client?s DSM-5 symptoms for depression decreased from admission to discharge going from 8/8 at admission to 5/8 at discharge. Additionally, client?s anxiety scores decreased since admission, going from 9/12 to 6/12. Issues Still to be Addressed:: Client has made progress towards her treatment goals, but she can continue to benefit from ongoing therapy to reinforce healthy coping skills, combat negative core beliefs, and improve consistency. Client acknowledges she has a history of self-reported lack of follow through, and there is a concern post IOP discharge that the lack of structure may be a b arrier. Client can benefit from increasing positive supports, establishing a fulfilling daily routine, and increasing consistent application of healthy coping skills. Client has increased self-awareness, but now client wants to improve her self-talk and increase confidence. Client can benefit from ongoing thought challenging, small goals, opposite action, and stepping out of her comfort zone. Discharge Recommendations/Instructions:: Client recommended to follow up with her outpatient therapist, Rhianna Huizar, at [facility] for continuity of care and ongoing work to manage mental health symptoms. Client declined to call during session to schedule an appointment with Rhianna. Client reported she plans to call Rhianna today and let this therapist know the date of her next appointment. Client also recommended to follow up with her outpatient provider at [facility], Deborah Cano, for medication management. Client did not know the exact date of her appointment, but she reports she has an appointment in March. Discharge Handout: Complete Discharge Handout with client on aftercare options and continuity of care.
--- NOTE | 2019-02-17 11:57 | BH.MDN ---
Multi-Disciplinary Note - Note 45-min Individual Time Started:: 10:36 Date: 02/17/19 Purpose of session/treatment goals addressed:: The purpose of this session was to review client's progress and review strategies that will promote mood stability and gains made in IOP. Another goal was to discuss discharge recommendations. Eye Contact:: Good Motor Activity:: Appropriate Appearance:: Neat Speech:: Appropriate Mood:: Euthymic Affect:: Congruent Thoughts:: Other - thought blocking, No evidence of hallucinations/delusions noted Staff Interventions:: Therapist used open-ended questions to explore client's thoughts on personal progress. Therapist reviewed supports, warning signs, and coping skills with client to promote gains and prevent setbacks. Therapist discussed aftercare plan with client and used strengths-perspective to empower client on the goals client has accomplished. Therapist discussed the benefits of ongoing maintenance and use of daily coping skills. Therapist gave client a quote collage for closure. Client Response:: Client responded well to session, open to meeting with therapist. Client reflected on her progress since starting [facility] and shared belief she has improved with recognizing her negative thinking and trying to stop herself from spiraling. Client stated group helped client realize she was not alone and that there are other perspectives out there. Client reported increased self-awareness of negative thoughts, warning signs, and self-sabotaging behaviors. Client acknowledges that she has learned numerous coping skills and she reports awareness that ?they don?t work if I don?t use them.? Client stated she has been doing better with working on small goals and not being herself up as much. Client reviewed coping skills that will promote gains and mood stability. Client's coping skills included; challenging distortions, focusing on baby steps, self-compassion, staying active, reaching out to supports for accountability, and listening to [employer]. Client?s DSM-5 scores decreased from 53 at admission to 35 at discharge. Client self-reported progress in reduced anxiety symptoms and improvements in decision-making. Risks/Concerns:: Client denies any suicidal ideations, plan, or intent as of 02/17/19. Progress Toward Goals/Plan:: Client to discharge from [facility] today as she reports receiving maximum benefit from the program. Client has demonstrated progress towards her treatment goals as shown by her self-report of learning new coping skills and her reduced DSM-5 scores. Client self-reports progress in reduced anxiety and panic symptoms. Client acknowledges that to promote mood stability moving forward it is important for her to apply coping skills consistently. Client to follow up with her outpatient providers for continuity of care. Time Stopped:: 11:17
--- NOTE | 2019-02-17 12:51 | PCM.BH.PN ---
Progress Note Progress Note: History of Present Illness/Interim History: Patient is a 58-year-old female seen in follow-up for medication management. She feels she has made great progress during the IOP program. Today is her last day of the program. She is feeling much better and looking forward to using the skills she has learned in [facility]. She is continuing to try to quit smoking using the Zyban I prescribed several weeks ago. She has not had any panic attacks for the past month since increasing the Paxil. She has cut back on cigarettes but is unable to quit completely yet. She is still taking care of her mother with Alzheimer's disease which is stressful for her. She has not had any hives or other somatic symptoms that she had in the past either. She feels that increasing the Paxil has really caused improvement of her depression and anxiety. [] Current Psychiatric Medications: [] Paxil 30 mg p.o. daily, Wellbutrin SR 100 mg p.o. twice daily trazodone 50 mg p.o. nightly, BuSpar 10 mg p.o. twice daily, Ativan 0.5 mg as needed] Mental Status Examination: [The patient is a 57-year-old female who appears normal for stated age. She is casually dressed and groomed with good hygiene. She is cooperative during the interview with no psychomotor agitation or retardation. Speech is normal and eye contact is good. Her mood is euthymic today. Affect is also full and euthymic. Thought processes are goal organized and goal-directed. Thought content: No evidence of hallucinations or delusions, no evidence of suicidal or homicidal ideation. Insight good. Judgment intact. 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 She will continue the Paxil 30 mg p.o. daily and her other psychiatric medications at the doses that she is on now. She will follow-up with her psychologist private practice in about 4 to 5 weeks. She felt safe today and if she is unable to feel safe at any time she will call or go to the emergency room. []
--- NOTE | 2019-02-17 13:51 | BH.NOTE ---
BH: Inpatient Note - Notes Behavioral Health Inpatient Note: Per written order from Dr. Henry, the following prescriptions were called into [facility] pharmacy in [place], [place]: Wellbutrin SR 100mg PO BID #[id number], 1 refill Paxil 30mg PO daily #30, 1 refill Gris Galdamez, MSN, RN
== END 2019-02-17 14:00 | disposition home or self-care (01) ==
LOC: BHIOP 09:00
PROVIDERS: Referring Provider Psychiatry & Neurology Psychiatry; Visit Provider Psychiatry & Neurology Psychiatry
DX: F33.2 Major depressive disorder, recurrent severe without psychotic features (principal); F41.1 Generalized anxiety disorder
CPT/HCPCS: H0035; 90832; 90834; 90853